=== PATIENT | female | born 1955 | race American Indian/Alaskan Native ===

== ENCOUNTER 2016-02-11 14:07 | Emergency (ER) | payer MEDICAID ==
[2016-02-11 14:18] VITALS: BP 155/94
[2016-02-11] MEDS ORDERED: NORCO 5/325 PO ONE (16:42)
[2016-02-11] MEDS ORDERED: MOTRIN PO ONE (16:42)
--- NOTE | 2016-02-11 16:44 | Emergency Department Report ---
ED Lower Extremity HPI - General Chief Complaint: Extremity Injury, Lower Stated Complaint: RIGHT KNEE INJURY Time Seen by Provider: 02/11/16 16:42 Source: patient Mode of arrival: Ambulatory Limitations: No Limitations - History of Present Illness Initial Comments: Patient reports right knee pain with swelling after she accidentally bumped her knee on the bedpost one week ago. Complaint: knee injury (right) Onset/Timin -: days(s) Injury: Knee: Right Type of Injury: unknown Place: home Severity: severe Severity scale (0 -10): 9 Improves With: immobilization Worsens With: weight bearing Context: direct blow Other Symptoms: other (none) Associated Symptoms: swelling, able to partially bear weight Treatments Prior to Arrival: other (none) - Related Data Home Medications Medication Instructions Recorded Confirmed Last Taken Carvedilol [Coreg] 12.5 mg PO BID 07/25/14 04/17/15 04/16/15 12.5 MG Lisinopril [Zestril TAB] 40 mg PO QDAY 07/25/14 04/17/15 04/16/15 40 MG Sertraline [Zoloft] 100 mg PO QDAY 07/25/14 04/17/15 04/16/15 100 MG amLODIPine [Norvasc] 10 mg PO DAILY 07/25/14 04/17/15 04/16/15 10 MG cloNIDine [Catapres] 0.2 mg PO QHS 07/25/14 04/17/15 04/16/15 0.2 MG hydrALAZINE [Apresoline TAB] 25 mg PO TID 07/25/14 04/17/15 04/16/15 25 MG Diclofenac Sodium 75 mg PO BID 04/17/15 04/17/15 04/16/15 75 MG Diltiazem HCl [Diltiazem 24Hr ER] 300 mg PO DAILY 04/17/15 04/17/15 04/16/15 300 MG Lisinopril [Zestril TAB] 40 mg PO QDAY 04/17/15 04/17/15 04/16/15 40 MG Nortriptyline HCl 25 mg PO BID 04/17/15 04/17/15 04/16/15 25 MG Previous Rx's Medication Instructions Recorded Last Taken Type ALBUTEROL Inhaler [ProAir HFA 2 puff IH QID PRN #1 inhalation 04/17/15 Unknown Rx Inhaler] Benzonatate [Tessalon Perles] 100 mg PO Q8HR #20 capsule 04/17/15 Unknown Rx predniSONE [Deltasone] 20 mg PO BID #10 tab 04/17/15 Unknown Rx traMADol [Ultram 50 MG tab] 50 mg PO Q6HR PRN #16 tablet 07/26/15 Unknown Rx Ibuprofen [Motrin 800 MG tab] 800 mg PO Q8HR PRN #30 tablet 02/11/16 Unknown Rx Allergies Allergy/AdvReac Type Severity Reaction Status Date / Time codeine Allergy Swelling Verified 07/26/15 14:45 Penicillins Allergy Swelling Verified 07/26/15 14:45 ED Review of Systems ROS: Stated complaint: RIGHT KNEE INJURY Other details as noted in HPI Constitutional: denies: chills, diaphoresis, fever, malaise Respiratory: denies: cough, orthopnea, shortness of breath, SOB with exertion, SOB at rest, stridor, wheezing Cardiovascular: denies: chest pain, palpitations, dyspnea on exertion, orthopnea , edema, syncope, paroxysmal nocturnal dyspnea Musculoskeletal: arthralgia (right knee). denies: back pain, joint swelling, myalgia Neurological: denies: headache, weakness, numbness, paresthesias, confusion, abnormal gait, vertigo Hematological/Lymphatic: denies: easy bleeding, easy bruising, swollen glands ED Past Medical Hx - Past Medical History Hx Hypertension: Yes Hx Arthritis: Yes Additional medical history: bronchitis - Surgical History Additional Surgical History: right total knee replacement, hernia repair, shoulder surgery - Social History Smoking Status: Current Some Day Smoker Substance Use Type: None - Medications Home Medications: Home Medications Medication Instructions Recorded Confirmed Last Taken Type Carvedilol [Coreg] 12.5 mg PO BID 07/25/14 04/17/15 04/16/15 History 12.5 MG Lisinopril [Zestril TAB] 40 mg PO QDAY 07/25/14 04/17/15 04/16/15 History 40 MG Sertraline [Zoloft] 100 mg PO QDAY 07/25/14 04/17/15 04/16/15 History 100 MG amLODIPine [Norvasc] 10 mg PO DAILY 07/25/14 04/17/15 04/16/15 History 10 MG cloNIDine [Catapres] 0.2 mg PO QHS 07/25/14 04/17/15 04/16/15 History 0.2 MG hydrALAZINE [Apresoline TAB] 25 mg PO TID 07/25/14 04/17/15 04/16/15 History 25 MG ALBUTEROL Inhaler [ProAir HFA 2 puff IH QID PRN #1 inhalation 04/17/15 Unknown Rx Inhaler] Benzonatate [Tessalon Perles] 100 mg PO Q8HR #20 capsule 04/17/15 Unknown Rx Diclofenac Sodium 75 mg PO BID 04/17/15 04/17/15 04/16/15 History 75 MG Diltiazem HCl [Diltiazem 24Hr ER] 300 mg PO DAILY 04/17/15 04/17/15 04/16/15 History 300 MG Lisinopril [Zestril TAB] 40 mg PO QDAY 04/17/15 04/17/15 04/16/15 History 40 MG Nortriptyline HCl 25 mg PO BID 04/17/15 04/17/15 04/16/15 History 25 MG predniSONE [Deltasone] 20 mg PO BID #10 tab 04/17/15 Unknown Rx traMADol [Ultram 50 MG tab] 50 mg PO Q6HR PRN #16 tablet 07/26/15 Unknown Rx Ibuprofen [Motrin 800 MG tab] 800 mg PO Q8HR PRN #30 tablet 02/11/16 Unknown Rx ED Physical Exam - General Limitations: No Limitations General appearance: alert, in no apparent distress - Head Head exam: Present: atraumatic - ENT ENT exam: Present: normal exam, mucous membranes moist. Absent: mucous membranes dry - Neck Neck exam: Present: normal inspection, full ROM. Absent: tenderness, meningismus, lymphadenopathy, thyromegaly - Respiratory Respiratory exam: Present: normal lung sounds bilaterally. Absent: respiratory distress, wheezes, rales, rhonchi, stridor, chest wall tenderness, accessory muscle use, decreased breath sounds, prolonged expiratory - Cardiovascular Cardiovascular Exam: Present: regular rate, normal rhythm, normal heart sounds. Absent: systolic murmur, diastolic murmur, rubs, gallop, clicks, JVD, S3, S4 - Expanded Lower Extremity Exam Right Hip exam: Present: pelvic stability Upper Leg exam: Present: normal inspection, full ROM. Absent: tenderness, swelling, abrasion, laceration, ecchymosis, deformity, crepidus, dislocation, erythema Knee exam: Present: full ROM, tenderness (with palpation to lateral and median) , swelling (minimal to lateral and median), full knee extension. Absent: abrasion, laceration, ecchymosis, deformity, crepidus, dislocation, erythema, effusion, pain w/ pronation/supination, posterior draw sign, pain/laxity with valgus, pain/laxity with varus Lower Leg exam: Present: normal inspection, full ROM. Absent: tenderness, swelling, abrasion, laceration, ecchymosis, deformity, crepidus, dislocation, erythema, palpable cord, Flynn's sign Neuro vascular tendon exam: Present: no vascular compromise. Absent: pulse deficit, abnormal cap refill, motor deficit, sensory deficit, tendon deficit, extremity cold to touch, pallor, abnormal 2-point discrimination, decreased fine /light touch, foot drop, peroneal nerve deficit, significant pain with passive ROM of distal joint Gait: Positive: not tested/not observed - Back Exam Back exam: Present: normal inspection, full ROM. Absent: tenderness - Neurological Exam Neurological exam: Present: alert, oriented X3, CN II-XII intact, normal gait, reflexes normal. Absent: motor sensory deficit - Skin Skin exam: Present: warm, dry, intact, normal color. Absent: rash ED Course Vital Signs 02/11/16 14:12 Temperature 98.9 F Pulse Rate 94 H Respiratory 16 Rate Blood Pressure 155/94 O2 Sat by Pulse 97 Oximetry - Reevaluation(s) Reevaluation #1: 02/11/16 16:43 pain medication, analgesic and radiology study ordered ED Lower Extremity MDM - Lab Data Vital Signs 02/11/16 14:12 Temperature 98.9 F Pulse Rate 94 H Respiratory 16 Rate Blood Pressure 155/94 O2 Sat by Pulse 97 Oximetry - Radiology Data Radiology results: image reviewed FINAL REPORT PROCEDURE: Right knee. TECHNIQUE: Three views. HISTORY: Right knee pain after injury. COMPARISON: No prior studies are available for comparison. FINDINGS: There is a total knee prosthesis in satisfactory position. The bones appear intact without fracture. The soft tissues are unremarkable. There is no evidence of a knee effusion. IMPRESSION: Total knee prosthesis. No evidence of fracture. - Medical Decision Making Auto course of ED, analgesics, pain medication and radiology studies were ordered. The imaging studies revealed total knee prosthesis. No evidence of fracture. Patient was sent home with a knee immobilizer, crutches and prescription for ibuprofen, instructed to follow with selector referrals given at discharge, she verbalize understanding - Differential Diagnosis Right knee pain, Right knee fracture Critical care attestation.: If time is entered above; I have spent that time in minutes in the direct care of this critically ill patient, excluding procedure time. ED Disposition Clinical Impression: Right knee pain Qualifiers: Chronicity: acute Qualified Code(s): M25.561 - Pain in right knee Disposition: DISCHARGED TO HOME OR SELFCARE Is pt being admited?: No Does the pt Need Aspirin: No Condition: Stable Instructions: Arthralgia (ED) Additional Instructions: Take medication as directed. Wear knee immobilizer for comfort. Follow up with the selective referrals given at discharge Prescriptions: Ibuprofen [Motrin 800 MG tab] 800 mg PO Q8HR PRN #30 tablet PRN Reason: Pain Referrals: CHAPARRO AGARWAL MD [Primary Care Provider] - 3-5 Days ALYSHA MARTINEZ MD [Staff Physician] - 3-5 Days Forms: Work/School Release Form(ED) Time of Disposition: 17:37
--- NOTE | 2016-02-11 18:32 | XRay Report ---
FINAL REPORT PROCEDURE: Right knee. TECHNIQUE: Three views. HISTORY: Right knee pain after injury. COMPARISON: No prior studies are available for comparison. FINDINGS: There is a total knee prosthesis in satisfactory position. The bones appear intact without fracture. The soft tissues are unremarkable. There is no evidence of a knee effusion. IMPRESSION: Total knee prosthesis. No evidence of fracture.
== END 2016-02-11 17:53 | disposition home or self-care (01) ==
LOC: ED 14:07
DX: M25.561 Pain in right knee (principal); I10 Essential (primary) hypertension; F17.200 Nicotine dependence, unspecified, uncomplicated; Z87.39 Personal history of other diseases of the musculoskeletal system and connective tissue; X58.XXXA Exposure to other specified factors, initial encounter; Y93.9 Activity, unspecified; Y92.9 Unspecified place or not applicable; Y99.9 Unspecified external cause status

== ENCOUNTER 2016-12-31 09:35 | Outpatient (CLI) | payer MEDICAID ==
--- NOTE | 2016-12-31 10:37 | XRay Report ---
LUMBOSACRAL SPINE, FIVE VIEWS: HISTORY: Lumbar ago with sciatica. There is 1.2 cm anterolisthesis of L4 with respect to L5 on the lateral image. This appears to be secondary to degenerative facet arthropathy. The remaining lumbar vertebra are normal in alignment. No evidence for compression deformity or bone lesion. Moderate to severe multilevel disc space narrowing, spurring and facet hypertrophy are identified. The lowest 3 levels are most affected. Severe bilateral neural foraminal stenosis is suspected at L4-5 on the oblique images. The remaining bony neural foramen appear within normal limits. The visualized sacrum and SI joints are unremarkable. IMPRESSION: Grade 2 anterolisthesis of L4 with respect to L5. High-grade bilateral neural foraminal narrowing at L4-5 is suspected. This could be further evaluated with MRI lumbar spine without contrast if needed. Multilevel lumbar spondylosis. No acute process is appreciated.
--- NOTE | 2016-12-31 10:39 | XRay Report ---
BILATERAL KNEES, 3 VIEWS History: Pain. Findings: Right knee arthroplasty changes are stable since 02/11/16. No evidence for fracture or joint effusion. Moderate osteoarthritic changes are identified in the left knee. The medial compartment is most affected. No fracture or osteochondral defect is identified. Moderate left knee effusion is noted. Impression: Unremarkable appearance of the right knee arthroplasty. Moderate osteoarthritic changes in the left knee. Left knee effusion. No acute process is noted.
== END 2016-12-31 09:36 | disposition home or self-care (01) ==
LOC: XRAY 09:35
PROVIDERS: ATTEND Urology
DX: M17.12 Unilateral primary osteoarthritis, left knee (principal); M47.896 Other spondylosis, lumbar region; M25.561 Pain in right knee; Z96.651 Presence of right artificial knee joint
CPT/HCPCS: 72110

== ENCOUNTER 2019-01-23 21:37 | Observation (INO) | payer MEDICAID ==
[2019-01-24] MEDS ORDERED: ASPIRIN 325 MG TAB PO ONE (00:43)
[2019-01-24] MEDS ORDERED: MORPHINE 4 MG/1 ML INJ IV ONE (01:02)
[2019-01-24] MEDS ORDERED: ONDANSETRON 4 MG/2 ML INJ IV ONE (01:02)
--- NOTE | 2019-01-24 01:06 | Emergency Department Report ---
ED Chest Pain HPI - General Chief Complaint: Chest Pain Stated Complaint: CHEST PAIN Time Seen by Provider: 01/24/19 00:59 Source: patient Mode of arrival: Ambulatory Limitations: No Limitations - History of Present Illness Initial Comments: Patient is 63 years old female with history of hypertension. Patient presented to the ER complaining of left sided chest pain, pressure and heaviness with no radiation. Patient stated that pain started last night after she smoked crack cocaine. Patient stated that she relapsed after 7 years of being clean. P sangita stated that her grandson got killed few Days ago. Patient denied any shortness of breath, cough, fever or chills. MD Complaint: chest pain -: Last night Onset: during rest Pain Location: left chest Quality: tightness, heaviness Consistency: constant Worsens With: nothing - Related Data Home Medications Medication Instructions Recorded Confirmed Last Taken amLODIPine 10 mg PO DAILY 07/25/14 12/18/17 04/16/15 10 MG ALPRAZolam [Xanax TAB] 2 mg PO TID PRN 12/18/17 12/18/17 Unknown Losartan/Hydrochlorothiazide 1 each PO DAILY 12/18/17 12/18/17 Unknown [Hyzaar 100-25 TAB] Oxycodone HCl/Acetaminophen 1 each PO Q12H PRN 12/18/17 12/18/17 Unknown [Percocet 10/325 mg] predniSONE [Deltasone] 10 mg PO DAILY 12/18/17 12/18/17 Unknown Previous Rx's Medication Instructions Recorded Last Taken Type ALBUTEROL Inhaler (OR & NICU) 2 puff IH Q4HR PRN #1 inhalation 12/18/17 Unknown Rx [ProAir HFA Inhaler] Azithromycin [Zithromax Z-ANA LILIA] 250 mg PO DAILY #6 tablet 12/18/17 Unknown Rx Benzonatate [Tessalon Perles] 100 mg PO Q8HR #20 capsule 12/18/17 Unknown Rx predniSONE [Deltasone] 20 mg PO QDAY #15 tab 12/18/17 Unknown Rx Allergies Allergy/AdvReac Type Severity Reaction Status Date / Time codeine Allergy Swelling Verified 07/26/15 14:45 Penicillins Allergy Swelling Verified 07/26/15 14:45 Heart Score - HEART Score History: Moderately suspicious EKG: Non-specific Age: 45-65 Risk factors: 1-2 risk factors Troponin: < normal limit HEART Score: 4 - Critical Actions Critical Actions: 4-6 pts:12-16.6% risk of adverse cardiac event. Should be admitted ED Review of Systems ROS: Stated complaint: CHEST PAIN Other details as noted in HPI Comment: All other systems reviewed and negative Constitutional: denies: chills, fever Respiratory: denies: cough, shortness of breath, SOB with exertion Cardiovascular: denies: chest pain Gastrointestinal: denies: abdominal pain, nausea, vomiting Musculoskeletal: denies: back pain Neurological: denies: headache, weakness, numbness, paresthesias, confusion ED Past Medical Hx - Past Medical History Previous Medical History?: Yes Hx Hypertension: Yes Hx Arthritis: Yes Additional medical history: bronchitis, Substance abuser - Surgical History Past Surgical History?: Yes Additional Surgical History: right total knee replacement, hernia repair, shoulder surgery - Social History Smoking Status: Never Smoker Substance Use Type: Cocaine - Medications Home Medications: Home Medications Medication Instructions Recorded Confirmed Last Taken Type amLODIPine 10 mg PO DAILY 07/25/14 12/18/17 04/16/15 History 10 MG ALBUTEROL Inhaler (OR & NICU) 2 puff IH Q4HR PRN #1 inhalation 12/18/17 Unknown Rx [ProAir HFA Inhaler] ALPRAZolam [Xanax TAB] 2 mg PO TID PRN 12/18/17 12/18/17 Unknown History Azithromycin [Zithromax Z-ANA LILIA] 250 mg PO DAILY #6 tablet 12/18/17 Unknown Rx Benzonatate [Tessalon Perles] 100 mg PO Q8HR #20 capsule 12/18/17 Unknown Rx Losartan/Hydrochlorothiazide 1 each PO DAILY 12/18/17 12/18/17 Unknown History [Hyzaar 100-25 TAB] Oxycodone HCl/Acetaminophen 1 each PO Q12H PRN 12/18/17 12/18/17 Unknown History [Percocet 10/325 mg] predniSONE [Deltasone] 10 mg PO DAILY 12/18/17 12/18/17 Unknown History predniSONE [Deltasone] 20 mg PO QDAY #15 tab 12/18/17 Unknown Rx ED Physical Exam - General Limitations: No Limitations General appearance: alert, in no apparent distress - Head Head exam: Present: atraumatic, normocephalic, normal inspection - Eye Eye exam: Present: normal appearance - ENT ENT exam: Present: normal exam, normal orophraynx, mucous membranes moist - Neck Neck exam: Present: normal inspection, full ROM. Absent: tenderness, meningismus, lymphadenopathy, thyromegaly - Respiratory Respiratory exam: Present: normal lung sounds bilaterally - Cardiovascular Cardiovascular Exam: Present: regular rate, normal rhythm, normal heart sounds - GI/Abdominal GI/Abdominal exam: Present: soft, normal bowel sounds. Absent: distended, tenderness, guarding, rebound, rigid, organomegaly, mass, bruit, pulsatile mass, hernia - Extremities Exam Extremities exam: Present: normal inspection, full ROM, normal capillary refill. Absent: tenderness, pedal edema, calf tenderness - Back Exam Back exam: Present: normal inspection, full ROM. Absent: CVA tenderness (R), CVA tenderness (L), muscle spasm, paraspinal tenderness, vertebral tenderness - Neurological Exam Neurological exam: Present: alert, oriented X3, CN II-XII intact, normal gait, reflexes normal - Psychiatric Psychiatric exam: Present: normal mood, anxious. Absent: depressed, agitated, homicidal ideation, suicidal ideation - Skin Skin exam: Present: warm, intact, normal color ED Course Vital Signs 01/23/19 01/23/19 01/24/19 21:42 23:52 01:00 Temperature 98.2 F Pulse Rate 106 H 91 H Respiratory 18 10 L 18 Rate Blood Pressure 152/100 O2 Sat by Pulse 96 98 Oximetry 01/24/19 01/24/19 01:34 01:46 Temperature Pulse Rate 90 91 H Respiratory 12 16 Rate Blood Pressure O2 Sat by Pulse Oximetry ED Medical Decision Making - Lab Data Result diagrams: 01/24/19 00:56 01/24/19 00:56 - EKG Data -: EKG Interpreted by [facility] EKG shows normal: sinus rhythm Rate: normal - EKG Data Interpretation: no acute changes - Radiology Data Radiology results: report reviewed - Medical Decision Making Patient is 63 years old female with history of hypertension. Patient presented to the ER complaining of left sided chest pain, pressure and heaviness with no radiation. Patient stated that pain started last night after she smoked crack cocaine. Patient stated that she relapsed after 7 years of being clean. Patient stated that her grandson got killed few Days ago. Patient denied any shortness of breath, cough, fever or chills. Patient EKG is unremarkable. Chest x-ray is negative. Labs reviewed and is unremarkable including a first set of troponin. Patient received morphine for pain. Patient stated that she is feeling better. I discussed the patient with Dr. Gross, he agreed to admit the patient to medical service for further management. Critical Care Time: Yes Critical care attestation.: If time is entered above; I have spent that time in minutes in the direct care of this critically ill patient, excluding procedure time. ED Disposition Clinical Impression: Chest pain, Cocaine abuse Disposition: OP ADMIT IP TO THIS HOSP Is pt being admited?: Yes Condition: Stable Instructions: Chest Pain (ED) Referrals: PRIMARY CARE, [Primary Care Provider] - 3-5 Days
[2019-01-24 01:18] LABS: Basophils # (Auto) 0.1 K/mm3 (0.0-0.1); Basophils % (Auto) 1.3 % (0.0-1.8); Eosinophils % (Auto) 0.2 % (0.0-4.3); Hematocrit 40.6 % (30.3-42.9); Hemoglobin 13.6 gm/dl (10.1-14.3); Lymphocytes # (Auto) 2.8 K/mm3 (1.2-5.4); Lymphocytes % (Auto) 28.9 % (13.4-35.0); Mean Corpuscular HGB Conc 34 % (30-34); Mean Corpuscular Volume 88 fl (79-97); Monocytes # (Auto) 0.9 K/mm3 (0.0-0.8); Monocytes % (Auto) 8.7 % (0.0-7.3); Platelet Count 301 K/mm3 (140-440); Red Blood Count 4.61 M/mm3 (3.65-5.03); Red Cell Distribution Width 15.2 % (13.2-15.2)
[2019-01-24 01:40] LABS: BUN/Creatinine Ratio 22; Blood Urea Nitrogen 13 mg/dL (7-17); Calcium 9.6 mg/dL (8.4-10.2); Hemolysis Index 8
--- NOTE | 2019-01-24 01:48 | XRay Report ---
CHEST 1 VIEW INDICATION / CLINICAL INFORMATION: Chest Pain. COMPARISON: 12/18/2017 FINDINGS: SUPPORT DEVICES: None. HEART / MEDIASTINUM: No significant abnormality. LUNGS / PLEURA: No significant pulmonary or pleural abnormality. No pneumothorax. ADDITIONAL FINDINGS: No significant additional findings. IMPRESSION: 1. No significant change Signer Name: Mahin Celeste MD Signed: 01/24/2019 1:43 AM Workstation Name: [id number]
[2019-01-24] MEDS ORDERED: NITROGLYCERIN 0.4 MG TAB SUBL SL PRN (02:46)
[2019-01-24] MEDS ORDERED: ONDANSETRON 4 MG/2 ML INJ IV PRN (02:46)
[2019-01-24] MEDS ORDERED: hydrALAZINE 20 MG/1 ML INJ IV PRN (02:46)
--- NOTE | 2019-01-24 02:59 | History and Physical Report ---
History of Present Illness Date of examination: 01/24/19 Date of admission: 01/24/19 Chief complaint: Chest pain History of present illness: 63 year old -[place] female with known history of hypertension, bipolar disorder and schizophrenia presented to the emergency room today complaining of left-sided chest pain. Chest pain is said to be radiating to the left upper extremity. She has had some associated nausea and vomiting, shortness of breath, denies any abdominal pain and no diarrhea. She denies any fever or chills. There is no known relieving or exacerbating factor for chest pain. Chest pain felt like heaviness and has been ongoing since last night. Chest pain has been constant over the past few hours. Patient admits that she has been abusing cocaine lately because she recently lost her grandson. Past History Past Medical History: hypertension, other (bipolar disorder, schizophrenia) Past Surgical History: total knee replacement, Other (right shoulder surgery) Social history: other (uses cocaine) Family history: hypertension, other (bipolar disorder) Medications and Allergies Allergies Allergy/AdvReac Type Severity Reaction Status Date / Time codeine Allergy Swelling Verified 07/26/15 14:45 Penicillins Allergy Swelling Verified 07/26/15 14:45 Home Medications Medication Instructions Recorded Confirmed Last Taken Type amLODIPine 10 mg PO DAILY 07/25/14 12/18/17 04/16/15 History 10 MG ALBUTEROL Inhaler (OR & NICU) 2 puff IH Q4HR PRN #1 inhalation 12/18/17 Unknown Rx [ProAir HFA Inhaler] ALPRAZolam [Xanax TAB] 2 mg PO TID PRN 12/18/17 12/18/17 Unknown History Azithromycin [Zithromax Z-ANA LILIA] 250 mg PO DAILY #6 tablet 12/18/17 Unknown Rx Benzonatate [Tessalon Perles] 100 mg PO Q8HR #20 capsule 12/18/17 Unknown Rx Losartan/Hydrochlorothiazide 1 each PO DAILY 12/18/17 12/18/17 Unknown History [Hyzaar 100-25 TAB] Oxycodone HCl/Acetaminophen 1 each PO Q12H PRN 12/18/17 12/18/17 Unknown History [Percocet 10/325 mg] predniSONE [Deltasone] 10 mg PO DAILY 12/18/17 12/18/17 Unknown History predniSONE [Deltasone] 20 mg PO QDAY #15 tab 12/18/17 Unknown Rx Review of Systems Cardiovascular: chest pain Gastrointestinal: nausea, vomiting Exam - Constitutional Vitals: Temp Pulse Resp BP Pulse Ox 98.2 F 91 H 16 152/100 98 01/23/19 21:42 01/24/19 01:46 01/24/19 01:46 01/23/19 21:42 01/23/19 23:52 General appearance: Present: no acute distress, well-nourished - EENT Eyes: Present: PERRL, EOM intact ENT: hearing intact, clear oral mucosa, dentition normal - Neck Neck: Present: supple, normal ROM - Respiratory Respiratory effort: normal Respiratory: bilateral: CTA - Cardiovascular Rhythm: regular Heart Sounds: Present: S1 & S2 - Extremities Extremities: no ischemia, pulses intact, No edema - Abdominal General gastrointestinal: Present: soft, non-tender, non-distended, normal bowel sounds - Integumentary Integumentary: Present: clear, warm - Musculoskeletal Musculoskeletal: strength equal bilaterally - Psychiatric Psychiatric: appropriate mood/affect, intact judgment & insight, cooperative - Neurologic Neurologic: CNII-XII intact, moves all extremities Results - Labs CBC & Chem 7: 01/24/19 03:21 01/24/19 03:21 Labs: Abnormal lab results 01/24/19 01/24/19 Range/Units 00:56 00:56 [place] % (Auto) 8.7 H (0.0-7.3) % [place] # 0.9 H (0.0-0.8) K/mm3 Potassium 3.3 L (3.6-5.0) mmol/L Creatinine 0.6 L (0.7-1.2) mg/dL Glucose 128 H (65-100) mg/dL Assessment and Plan - Patient Problems (1) Chest pain Current Visit: Yes Status: Acute Plan to address problem: Patient admitted to telemetry. Workup so far has been negative. We'll monitor EKG and also monitor cardiac enzymes. Chest pain probably secondary to cocaine abuse. We will request cardiology evaluation and recommendation (2) Cocaine abuse Current Visit: Yes Status: Acute Plan to address problem: Counseled on quitting cocaine abuse. (3) History of bipolar disorder Current Visit: Yes Status: Acute Plan to address problem: We will resume routine home medications once reconciled. (4) DVT prophylaxis Current Visit: Yes Status: Acute Plan to address problem: Patient placed on subcutaneous heparin. (5) Full code status Current Visit: Yes Status: Acute
[2019-01-24 03:40] LABS: Basophils # (Auto) 0.1 K/mm3 (0.0-0.1); Basophils % (Auto) 1.1 % (0.0-1.8); Eosinophils % (Auto) 0.4 % (0.0-4.3); Hematocrit 37.7 % (30.3-42.9); Lymphocytes # (Auto) 2.5 K/mm3 (1.2-5.4); Lymphocytes % (Auto) 32.1 % (13.4-35.0); Mean Corpuscular HGB Conc 35 % (30-34); Mean Corpuscular Volume 87 fl (79-97); Monocytes # (Auto) 0.6 K/mm3 (0.0-0.8); Platelet Count 282 K/mm3 (140-440); Red Blood Count 4.31 M/mm3 (3.65-5.03); Red Cell Distribution Width 14.9 % (13.2-15.2)
[2019-01-24 04:03] LABS: BUN/Creatinine Ratio 23; Blood Urea Nitrogen 14 mg/dL (7-17); Calcium 9.3 mg/dL (8.4-10.2); Hemolysis Index 4
[2019-01-24] MEDS: HEPARIN 5,000 UNIT/1 ML VIAL SUB-Q SCH ×3 (08:09→22:42)
--- NOTE | 2019-01-24 11:11 | Consultation ---
History of Present Illness Consult date: 01/24/19 Consult reason: chest pain History of present illness: 63 year old old piece -Burkinan female with a history of hypertension, claims to have used crack cocaine yesterday and this was followed by left precordial chest pain and tightness and came to the emergency room. Currently patient is chest pain-free. Past History Past Medical History: hypertension, other (bipolar disorder, schizophrenia) Past Surgical History: total knee replacement, Other (right shoulder surgery) Social history: other (uses cocaine) Family history: hypertension, other (bipolar disorder) Medications and Allergies Allergies Allergy/AdvReac Type Severity Reaction Status Date / Time codeine Allergy Swelling Verified 07/26/15 14:45 Penicillins Allergy Swelling Verified 07/26/15 14:45 Home Medications Medication Instructions Recorded Confirmed Last Taken Type amLODIPine 10 mg PO DAILY 07/25/14 12/18/17 04/16/15 History 10 MG ALBUTEROL Inhaler (OR & NICU) 2 puff IH Q4HR PRN #1 inhalation 12/18/17 Unknown Rx [ProAir HFA Inhaler] ALPRAZolam [Xanax TAB] 2 mg PO TID PRN 12/18/17 12/18/17 Unknown History Azithromycin [Zithromax Z-ANA LILIA] 250 mg PO DAILY #6 tablet 12/18/17 Unknown Rx Benzonatate [Tessalon Perles] 100 mg PO Q8HR #20 capsule 12/18/17 Unknown Rx Losartan/Hydrochlorothiazide 1 each PO DAILY 12/18/17 12/18/17 Unknown History [Hyzaar 100-25 TAB] Oxycodone HCl/Acetaminophen 1 each PO Q12H PRN 12/18/17 12/18/17 Unknown History [Percocet 10/325 mg] predniSONE [Deltasone] 10 mg PO DAILY 12/18/17 12/18/17 Unknown History predniSONE [Deltasone] 20 mg PO QDAY #15 tab 12/18/17 Unknown Rx Active Meds: Active Medications Acetaminophen (Tylenol) 650 mg PO Q4H PRN PRN Reason: Pain MILD(1-3)/Fever >100.5/SOTO Aspirin (Ecotrin) 325 mg PO QDAY CHRISTOPHER Heparin Sodium (Porcine) (Heparin) 5,000 unit SUB-Q Q8HR [facility] Last Admin: 01/24/19 08:09 Dose: 5,000 unit Documented by: Hydralazine HCl (Apresoline) 10 mg IV Q6H PRN PRN Reason: FOR SBP > target Nitroglycerin (Nitrostat) 0.4 mg SL Q5M PRN PRN Reason: Chest Pain Ondansetron HCl (Zofran) 4 mg IV Q8H PRN PRN Reason: Nausea And Vomiting Sodium Chloride (Sodium Chloride Flush Syringe 10 Ml) 10 ml IV BID CHRISTOPHER Sodium Chloride (Sodium Chloride Flush Syringe 10 Ml) 10 ml IV PRN PRN PRN Reason: LINE FLUSH Review of Systems All systems: negative Cardiovascular: chest pain Physical Examination Vital Signs Temp Pulse Resp BP Pulse Ox 98.2 F 106 H 18 152/100 96 01/23/19 21:42 01/23/19 21:42 01/23/19 21:42 01/23/19 21:42 01/23/19 21:42 General appearance: no acute distress, obese HEENT: Positive: PERRL, Mucus Membranes Moist Neck: Positive: neck supple, trachea midline Cardiac: Positive: Reg Rate and Rhythm, S1/S2. Negative: Audible Murmur Lungs: Positive: clear to auscultation, Normal Breath Sounds Neuro: Positive: Grossly Intact Abdomen: Positive: Soft, Active Bowel Sounds. Negative: Tender, Distended Female genitourinary: deferred Skin: Positive: Clear Incision: Cardiac Cath Site Musculoskeletal: No Pain, Normal Range of Motion Extremities: Present: normal. Absent: edema Results 01/24/19 03:21 01/24/19 03:21 CBC 01/24/19 01/24/19 Range/Units 00:56 03:21 WBC 9.8 7.8 (4.5-11.0) K/mm3 RBC 4.61 4.31 (3.65-5.03) M/mm3 Hgb 13.6 13.0 (10.1-14.3) gm/dl Hct 40.6 37.7 (30.3-42.9) % Plt Count 301 282 (140-440) K/mm3 Lymph # 2.8 2.5 (1.2-5.4) K/mm3 Bibb # 0.9 H 0.6 (0.0-0.8) K/mm3 Eos # 0.0 0.0 (0.0-0.4) K/mm3 Baso # 0.1 0.1 (0.0-0.1) K/mm3 Comprehensive Metabolic Panel 01/24/19 01/24/19 Range/Units 00:56 03:21 Sodium 138 140 (137-145) mmol/L Potassium 3.3 L 3.1 L (3.6-5.0) mmol/L Chloride 99.8 101.6 (98-107) mmol/L Carbon Dioxide 23 25 (22-30) mmol/L BUN 13 14 (7-17) mg/dL Creatinine 0.6 L 0.6 L (0.7-1.2) mg/dL Glucose 128 H 132 H (65-100) mg/dL Calcium 9.6 9.3 (8.4-10.2) mg/dL - EKG Interpretation EKG: sinus rhythm EKG interpretations - Telemetry EKG Rhythm: Sinus Rhythm Assessment and Plan 1. Atypical chest pain 2. Essential hypertension 3. Obesity 4. Schizoaffective disorder 5. Cocaine abuse Plan Cardiac-kulkarni stable chest pain resolved. Schedule Lexiscan MPI to assess for ischemic coronary artery disease.
--- NOTE | 2019-01-24 18:55 | Event Note ---
Date: 01/24/19 Patient was admitted early this morning with chest pain Evaluated by cardiology scheduled for stress test tomorrow Patient feels slightly better, medical records reviewed Agree with treatment plan, history of cocaine abuse, advised to quit recreational drug use Ongoing tobacco abuse, advised smoking cessation and nicotine patch as needed Follow clinically, follow stress test if negative and if patient is stable May be discharged home tomorrow
[2019-01-24] MEDS: ACETAMINOPHEN 325 MG TAB PO PRN ×2 (19:33→23:51)
[2019-01-24 20:45] LABS: Amphetamine Screen,Urine PRESUMPTIVE NEGATIVE; Benzodiazepines Screen,Urine PRESUMPTIVE NEGATIVE; Cannabinoid Screen,Urine PRESUMPTIVE NEGATIVE; Methadone Screen,Urine PRESUMPTIVE NEGATIVE; Opiate Screen,Urine PRESUMPTIVE NEGATIVE
[2019-01-24 20:59] LABS: Cocaine Screen,Urine PRESUMPTIVE POSITIVE
[2019-01-25] MEDS: HEPARIN 5,000 UNIT/1 ML VIAL SUB-Q SCH ×2 (05:21→14:14)
[2019-01-25] MEDS ORDERED: REGADENOSON 0.4 MG/5 ML INJ IV ONE (06:53)
[2019-01-25 08:21] LABS: Hematocrit 36.5 % (30.3-42.9); Hemoglobin 12.2 gm/dl (10.1-14.3); Mean Corpuscular HGB Conc 33 % (30-34); Mean Corpuscular Volume 89 fl (79-97); Platelet Count 257 K/mm3 (140-440); Red Blood Count 4.09 M/mm3 (3.65-5.03); Red Cell Distribution Width 14.9 % (13.2-15.2)
[2019-01-25 08:28] LABS: INR 0.97 (0.87-1.13); Partial Thromboplastin Time 37.9 Sec. (24.2-36.6)
[2019-01-25 08:40] LABS: BUN/Creatinine Ratio 23; Blood Urea Nitrogen 14 mg/dL (7-17); Calcium 8.9 mg/dL (8.4-10.2); Hemolysis Index 0
[2019-01-25 09:51] LABS: Basophils % (Manual) 0 % (0.0-1.8); Total Cells Counted 100
[2019-01-25 09:52] LABS: Anisocytosis Few; Platelet Estimate Consistent w Auto; Poikilocytosis Few
[2019-01-25] MEDS ORDERED: ASPIRIN EC 325 MG TAB PO SCH (10:00)
[2019-01-25] MEDS ORDERED: ONDANSETRON 4 MG/2 ML INJ ONE (10:06)
[2019-01-25] MEDS ORDERED: PNEUMOCOCCAL 23 Valent 0.5 ML VIAL IM ONE (12:00)
[2019-01-25 12:29] VITALS: BP 135/84
--- NOTE | 2019-01-25 14:27 | Progress Note ---
Assessment and Plan - Patient Problems (1) Chest pain Current Visit: Yes Status: Acute Plan to address problem: Chest pain is atypical, thallium stress test is negative, patient is stable for cardiac discharge. (2) Nonischemic cardiomyopathy Current Visit: Yes Status: Acute Plan to address problem: History of nonischemic cardiomyopathy with ejection fraction of 20% in 2014, ech ocardiogram and this presentation shows a nearly completely resolved cardiomyopathy with current left ventricle ejection fraction 50-55%. Continue conservative medical therapy. Subjective Date of service: 01/25/19 Interval history: 63-year-old woman who presented with atypical chest pain. She has had an extensive prior cardiac ischemic evaluation including a cardiac catheterization 4 years ago. There was no significant coronary artery disease but there was a nonischemic cardiomyopathy with severe left ventricle systolic dysfunction, ejection fraction 20%. She was placed on guideline directed medical therapy, but has failed to maintain cardiac outpatient visits. On this presentation, echocardiogram today shows left ventricular ejection fraction 50-55%, evidence of a resolving nonischemic cardiomyopathy. A thallium perfusion scan was normal. Objective Vital Signs Temp Pulse Resp BP Pulse Ox 01/25/19 13:59 97 01/25/19 12:08 98.0 F 84 18 135/84 98 01/25/19 12:00 80 01/25/19 09:58 144/78 01/25/19 09:56 140/78 01/25/19 09:55 136/85 01/25/19 09:54 126/71 01/25/19 09:53 150/66 01/25/19 08:56 134/84 01/25/19 05:19 98.0 F 01/25/19 05:18 69 20 106/46 97 01/25/19 00:15 98.8 F 01/25/19 00:14 79 20 116/56 98 01/24/19 22:57 80 01/24/19 22:00 98 01/24/19 20:40 98.4 F 01/24/19 20:13 86 18 126/72 100 01/24/19 19:36 89 01/24/19 17:32 98.2 F 77 18 103/53 96 01/24/19 14:54 100 - Physical Examination General: No Apparent Distress HEENT: Positive: PERRL, Mucus Membranes Moist Neck: Positive: neck supple, trachea midline Cardiac: Positive: Reg Rate and Rhythm Lungs: Positive: Decreased Breath Sounds Neuro: Positive: Grossly Intact Abdomen: Positive: Soft, Active Bowel Sounds. Negative: Tender, Distended Skin: Positive: Clear Incision: Cardiac Cath Site Musculoskeletal: No Pain, Normal Range of Motion Extremities: Absent: edema - Labs and Meds Coagulation 01/25/19 Range/Units 07:29 PT 13.0 (12.2-14.9) Sec. INR 0.97 (0.87-1.13) APTT 37.9 H (24.2-36.6) Sec. CBC 01/25/19 Range/Units 07:29 WBC 4.3 L (4.5-11.0) K/mm3 RBC 4.09 (3.65-5.03) M/mm3 Hgb 12.2 (10.1-14.3) gm/dl Hct 36.5 (30.3-42.9) % Plt Count 257 (140-440) K/mm3 Comprehensive Metabolic Panel 01/25/19 Range/Units 07:29 Sodium 144 (137-145) mmol/L Potassium 3.6 (3.6-5.0) mmol/L Chloride 105.6 (98-107) mmol/L Carbon Dioxide 24 (22-30) mmol/L BUN 14 (7-17) mg/dL Creatinine 0.6 L (0.7-1.2) mg/dL Glucose 110 H (65-100) mg/dL Calcium 8.9 (8.4-10.2) mg/dL
[2019-01-25] MEDS: ACETAMINOPHEN 325 MG TAB PO PRN (15:48)
--- NOTE | 2019-01-25 16:11 | Discharge Summary ---
Providers - Providers Date of Admission: 01/24/19 02:05 Date of discharge: 01/25/19 Attending physician: SUZETTE MILLS 01/24/19 Consult to Cardiac Rehabilitation [CONS] Routine Reason For Exam: Phase I 01/24/19 02:46 Consult to Cardiology [CONS] Routine Consulting Provider: ANETA CONTE Reason For Exam: chest pain Primary care physician: ZIGZAG STITCHER Hospitalization Reason for admission: Chest pain Condition: Stable Pertinent studies: CXR Procedures: Echo; 50-55% Stress test; no ischemia Hospital course: 63 year old -Macedonian female with known history of hypertension, bipolar disorder and schizophrenia presented to the emergency room today complaining of left-sided chest pain. Admittedsymptomatically managed,evaluated by cardiology Had ECHO and stress test which was negative for ischemia. Patient's chest pain is non specific,probably sec to GERD. Today patient feels better,no new complaints,vital signs stable. Stable at discharge Discharge Diagnosis; -- Atypical chest pain --Essential hypertension --Obesity --Schizoaffective disorder --Cocaine abuse Stable at discharge Disposition: DC-01 TO HOME OR SELFCARE Time spent for discharge: 32 min Core Measure Documentation - Palliative Care Palliative Care/ Comfort Measures: Not Applicable - Core Measures Any of the following diagnoses?: none Exam - Constitutional Vitals: Temp Pulse Resp BP Pulse Ox 98.0 F 84 18 135/84 97 01/25/19 12:08 01/25/19 12:08 01/25/19 12:08 01/25/19 12:08 01/25/19 13:59 General appearance: Present: no acute distress, well-nourished, obese - EENT Eyes: Present: PERRL, EOM intact - Neck Neck: Present: supple, normal ROM - Respiratory Respiratory effort: normal Respiratory: bilateral: diminished, negative: rales, rhonchi, wheezing - Cardiovascular Rhythm: regular Heart Sounds: Present: S1 & S2 - Extremities Extremities: no ischemia, No edema - Abdominal General gastrointestinal: Present: soft, non-tender, non-distended, normal bowel sounds - Integumentary Integumentary: Present: clear, warm - Musculoskeletal Musculoskeletal: strength equal bilaterally - Psychiatric Psychiatric: appropriate mood/affect, cooperative - Neurologic Neurologic: moves all extremities Plan Activity: no restrictions Diet: other (cardiac diet) Additional Instructions: If you have Chest pain or shortness of breath contact [facility] or go to emergency room. Advised to quit recreational drug use. Advised smoking cessation, nicotine patch as needed Follow up with: PRIMARY CARE, [Primary Care Provider] - 3-5 Days NIESHA MILLER MD [Staff Physician] - 7 Days Prescriptions: Famotidine [Pepcid] 20 mg PO BID #30 tablet
--- NOTE | 2019-01-26 00:13 | Treadmill Report ---
STUDY: Thallium stress test. LEFT VENTRICLE: Left ventricular chamber size is within normal spread. Perfusion study demonstrates fairly homogeneous uptake of the tracer in all segments, no significant defects identified. Gated analysis demonstrates normal left ventricular systolic function, ejection fraction 57%. CONCLUSION: Normal myocardial perfusion study. JOB# [id number] CA/NTS
== END 2019-01-25 17:15 | disposition home or self-care (01) ==
LOC: ED 21:37 → 4A 01-24 02:05
PROVIDERS: ADMIT Internal Medicine Geriatric Medicine; ATTEND Internal Medicine
DX: R07.89 Other chest pain (principal); F14.10 Cocaine abuse, uncomplicated; F31.9 Bipolar disorder, unspecified; R11.2 Nausea with vomiting, unspecified; I10 Essential (primary) hypertension; F20.9 Schizophrenia, unspecified; M19.90 Unspecified osteoarthritis, unspecified site; I42.8 Other cardiomyopathies; Z23 Encounter for immunization; Z96.651 Presence of right artificial knee joint; Z98.890 Other specified postprocedural states
CPT/HCPCS: 36415; 71045; 78452; 80048; 80307; 84484; 85007; 85025; 85610; 85730; 90471; 90732; 93005; 93010; 93017; 93306; 94760; 96372; 96374; 96375; 96376; 99285; 99406; A9502; G0378; J1644; J2270; J2405; J2785

== ENCOUNTER 2020-05-21 13:33 | Inpatient (IN) | payer MEDICAID ==
--- NOTE | 2020-05-21 13:44 | Event Note ---
ED Screening Note Date of service: 05/21/20 Time: 13:44 ED Screening Note: There is a very pleasant 64-year-old female who presents the emergency department chief complaint shortness of breath. Patient has a history of COPD per chart. She states she feels that if her bronchitis is flaring back up. She denies any smoking. She had no acute short of breathing, lung sounds are clear and oxygen saturation 100% on room air with normal vitals otherwise. This initial assessment/diagnostic orders/clinical plan/treatment(s) is/are subject to change based on patients health status, clinical progression and re- assessment by fellow clinical providers in the ED. Further treatment and workup at subsequent clinical providers discretion. Patient/guardian urged not to elope from the ED as their condition may be serious if not clinically assessed and managed. Initial orders include: CBC, CMP, chest x-ray
[2020-05-21 14:22] LABS: Basophils % (Auto) 0.8 % (0.0-1.8); Eosinophils # (Auto) 0.1 K/mm3 (0.0-0.4); Eosinophils % (Auto) 1.4 % (0.0-4.3); Hematocrit 36.8 % (30.3-42.9); Lymphocytes # (Auto) 1.6 K/mm3 (1.2-5.4); Lymphocytes % (Auto) 26.9 % (13.4-35.0); Mean Corpuscular HGB Conc 33 % (30-34); Mean Corpuscular Volume 91 fl (79-97); Monocytes # (Auto) 0.7 K/mm3 (0.0-0.8); Monocytes % (Auto) 11.4 % (0.0-7.3); Platelet Count 250 K/mm3 (140-440); Red Blood Count 4.03 M/mm3 (3.65-5.03); Red Cell Distribution Width 14.9 % (13.2-15.2)
--- NOTE | 2020-05-21 14:42 | XRay Report ---
CHEST 2 VIEWS INDICATION / CLINICAL INFORMATION: copd, SOB. COMPARISON: Chest one view from 04/02/2020. FINDINGS: SUPPORT DEVICES: None. HEART / MEDIASTINUM: Stable. LUNGS / PLEURA: There are nonspecific bibasilar opacities. The upper lungs are clear. No significant pleural effusion. No pneumothorax. ADDITIONAL FINDINGS: No significant additional findings. IMPRESSION: Nonspecific bibasilar opacities could represent atelectasis or pneumonia. Continued radiographic foll ow-up to resolution is recommended. Signer Name: Jonas Vincent MD Signed: 05/21/2020 2:38 PM Workstation Name: [id number]
[2020-05-21 14:47] LABS: Alanine Aminotransferase 19 units/L (7-56); Albumin 3.8 g/dL (3.9-5); BUN/Creatinine Ratio 21; Blood Urea Nitrogen 17 mg/dL (7-17); Calcium 8.8 mg/dL (8.4-10.2); Hemolysis Index 7
[2020-05-21] MEDS ORDERED: IPRATROPIUM 0.02% NEBU 2.5 ML IH ONE (16:32)
[2020-05-21] MEDS ORDERED: dexAMETHasone 20 MG/5 ML VIAL IV ONE (16:32)
[2020-05-21] MEDS ORDERED: ALBUTEROL 2.5 MG/3 ML NEBU IH ONE (16:32)
--- NOTE | 2020-05-21 16:36 | Emergency Department Report ---
ED Asthma HPI - General Chief Complaint: Dyspnea/Respdistress Stated Complaint: KARINA Time Seen by Provider: 05/21/20 16:26 Source: patient Mode of arrival: Wheelchair Limitations: No Limitations - History of Present Illness Initial Comments: Patient is a 64-year-old F Andor[place] female with past medical history of COPD who is currently not on any treatments at this time who is presenting with 2 weeks of chest pain shortness of breath. States she feels a tightness in her chest with a cough. She is states she feels extremely short of breath especially with exertion has some mild body aches. She denies nausea vomiting diarrhea. She is not sure she has had fevers at home. Denies any contact with anyone with COVID- 19 to her knowledge. MD Complaint: wheezing - Related Data Home Medications Medication Instructions Recorded Confirmed Last Taken amLODIPine 10 mg PO DAILY 07/25/14 01/24/19 04/16/15 10 MG ALPRAZolam [Xanax TAB] 2 mg PO TID PRN 12/18/17 01/24/19 Unknown Oxycodone HCl/Acetaminophen 1 each PO Q12H PRN 12/18/17 01/24/19 Unknown [Percocet 10/325 mg] Previous Rx's Medication Instructions Recorded Last Taken Type Famotidine [Pepcid] 20 mg PO BID #30 tablet 01/25/19 Unknown Rx Albuterol Mdi (or & Nicu Only) 2 puff IH Q4HR PRN #1 inhalation 04/04/20 Unknown Rx [ProAir HFA Inhaler] Azithromycin [Zithromax Z-ANA LILIA] 0 mg PO DAILY #6 tab 04/04/20 Unknown Rx Budesonide/Formoterol Fumarate 10.2 gm IH BID #1 hfa.aer.ad 04/04/20 Unknown Rx [Symbicort 160-4.5 Mcg Inhaler] hydrALAZINE [Apresoline TAB] 50 mg PO Q8HR #90 tablet 04/04/20 Unknown Rx metFORMIN [Glucophage] 500 mg PO BID #60 tablet 04/04/20 Unknown Rx predniSONE [Deltasone] 60 mg PO QDAY #7 tablet 04/04/20 Unknown Rx Allergies Allergy/AdvReac Type Severity Reaction Status Date / Time codeine Allergy Swelling Verified 07/26/15 14:45 Penicillins Allergy Swelling Verified 06/15/16 14:45 ED Review of Systems ROS: Stated complaint: KARINA Other details as noted in HPI Comment: All other systems reviewed and negative ED Past Medical Hx - Past Medical History Previous Medical History?: Yes Hx Hypertension: Yes Hx Arthritis: Yes Hx Psychiatric Treatment: Yes (Bipolar) Hx Asthma: No Hx COPD: Yes Hx Tuberculosis: No Hx HIV: No Additional medical history: bronchitis, Substance abuser - Surgical History Additional Surgical History: right total knee replacement, hernia repair, shoulder surgery - Social History Smoking Status: Former Smoker - Medications Home Medications: Home Medications Medication Instructions Recorded Confirmed Last Taken Type amLODIPine 10 mg PO DAILY 07/25/14 01/24/19 04/16/15 History 10 MG ALPRAZolam [Xanax TAB] 2 mg PO TID PRN 12/18/17 01/24/19 Unknown History Oxycodone HCl/Acetaminophen 1 each PO Q12H PRN 12/18/17 01/24/19 Unknown History [Percocet 10/325 mg] Famotidine [Pepcid] 20 mg PO BID #30 tablet 01/25/19 Unknown Rx Albuterol Mdi (or & Nicu Only) 2 puff IH Q4HR PRN #1 inhalation 04/04/20 Unknown Rx [ProAir HFA Inhaler] Azithromycin [Zithromax Z-ANA LILIA] 0 mg PO DAILY #6 tab 04/04/20 Unknown Rx Budesonide/Formoterol Fumarate 10.2 gm IH BID #1 hfa.aer.ad 04/04/20 Unknown Rx [Symbicort 160-4.5 Mcg Inhaler] hydrALAZINE [Apresoline TAB] 50 mg PO Q8HR #90 tablet 04/04/20 Unknown Rx metFORMIN [Glucophage] 500 mg PO BID #60 tablet 04/04/20 Unknown Rx predniSONE [Deltasone] 60 mg PO QDAY #7 tablet 04/04/20 Unknown Rx ED Physical Exam - General Limitations: No Limitations General appearance: alert, in distress (mild resp distress) - Head Head exam: Present: atraumatic, normocephalic - Eye Eye exam: Present: normal appearance, PERRL, EOMI - ENT ENT exam: Present: mucous membranes moist - Neck Neck exam: Present: normal inspection - Respiratory Respiratory exam: Present: respiratory distress, wheezes. Absent: normal lung sounds bilaterally, rales, rhonchi, stridor, chest wall tenderness - Cardiovascular Cardiovascular Exam: Present: regular rate, normal rhythm, normal heart sounds. Absent: systolic murmur, diastolic murmur, rubs, gallop - GI/Abdominal GI/Abdominal exam: Present: soft, normal bowel sounds. Absent: distended, tenderness, guarding, rebound - Extremities Exam Extremities exam: Present: normal inspection - Back Exam Back exam: Present: normal inspection - Neurological Exam Neurological exam: Present: alert, oriented X3 - Psychiatric Psychiatric exam: Present: normal affect, normal mood - Skin Skin exam: Present: warm, dry, intact, normal color. Absent: rash ED Course Vital Signs 05/21/20 05/21/20 05/21/20 13:39 16:38 17:16 Temperature 98.4 F Pulse Rate 81 64 Pulse Rate [ Anterior Bilateral Throughout] Pulse Rate [ Anterior] Respiratory 24 12 Rate Respiratory Rate [Anterior Bilateral Throughout] Respiratory Rate [Anterior] Blood Pressure 152/89 Blood Pressure 175/99 [Right] O2 Sat by Pulse 100 100 96 Oximetry 05/21/20 05/21/20 05/21/20 17:30 17:46 18:00 Temperature Pulse Rate 67 69 69 Pulse Rate [ Anterior Bilateral Throughout] Pulse Rate [ Anterior] Respiratory 13 14 18 Rate Respiratory Rate [Anterior Bilateral Throughout] Respiratory Rate [Anterior] Blood Pressure 152/89 178/85 178/85 Blood Pressure [Right] O2 Sat by Pulse 97 99 100 Oximetry 05/21/20 05/21/20 05/21/20 18:16 18:30 18:46 Temperature Pulse Rate 69 71 83 Pulse Rate [ 71 Anterior Bilateral Throughout] Pulse Rate [ 65 Anterior] Respiratory 12 15 19 Rate Respiratory 20 Rate [Anterior Bilateral Throughout] Respiratory 22 Rate [Anterior] Blood Pressure 168/77 168/77 168/84 Blood Pressure [Right] O2 Sat by Pulse 98 100 98 Oximetry ED Medical Decision Making - Lab Data Result diagrams: 05/21/20 14:03 05/21/20 14:03 - EKG Data -: EKG Interpreted by Ms - EKG Data 05/21/20 17:14 EKG shows sinus rhythm rate of 66. Dearing is normal intervals are normal. No ST segment elevation or depression. Time of interpretation 1700 - Radiology Data [facility] [address] [place] [address] XRay Report Signed Patient: BRYANT FISHMAN MR#: [id number] : 1955 Acct:[id number] Age/Sex: 64 / F ADM Date: 05/21/20 Loc: ED Attending Dr: Ordering Physician: ELIZABETH PAULINO Date of Service: 05/21/20 Procedure(s): XR chest routine 2V Accession Number(s): [id number] cc: ELIZABETH PAULINO Fluoro Time In Minutes: CHEST 2 VIEWS INDICATION / CLINICAL INFORMATION: copd, SOB. COMPARISON: Chest one view from 04/02/2020. FINDINGS: SUPPORT DEVICES: None. HEART / MEDIASTINUM: Stable. LUNGS / PLEURA: There are nonspecific bibasilar opacities. The upper lungs are clear. No significant pleural effusion. No pneumothorax. ADDITIONAL FINDINGS: No significant additional findings. IMPRESSION: Nonspecific bibasilar opacities could represent atelectasis or pneumonia. Continued radiographic follow-up to resolution is recommended. Signer Name: Jonas Vincent MD Signed: 05/21/2020 2:38 PM Workstation Name: [id number] - Medical Decision Making After the patient received hour-long neb treatment she still having significant shortness of breath especially with any movement and wheezing. Chest x-ray shows bibasilar infiltrates consistent with a viral pneumonia. Will admit the patient for continued oxygen and neb treatments and cold with test in the morning. Patient mated to the hospitalist service. Critical Care Time: Yes (30) Critical care attestation.: If time is entered above; I have spent that time in minutes in the direct care of this critically ill patient, excluding procedure time. ED Disposition Clinical Impression: COPD exacerbation, Bronchospasm, acute, Respiratory distress, Hypertension, Suspected COVID-19 virus infection Pneumonia of both lower lobes Qualifiers: Pneumonia type: due to unspecified organism Qualified Code(s): J18.9 - Pneumonia, unspecified organism Disposition: OP ADMIT IP TO THIS HOSP Is pt being admited?: Yes Does the pt Need Aspirin: No Condition: Stable Instructions: Bacterial Pneumonia (ED), Chronic Obstructive Pulmonary Disease (ED), Hypertension (ED) Time of Disposition: 19:23
[2020-05-21 17:19] LABS: C-Reactive Protein 0.8 mg/dL (0.00-1.30)
[2020-05-21] MEDS ORDERED: levoFLOXacin 500 MG TAB PO ONE (17:42)
[2020-05-21] MEDS ORDERED: dexAMETHasone 20 MG/5 ML VIAL IM ONE (17:42)
[2020-05-21] MEDS ORDERED: METOPROLOL TARTRATE 50 MG TAB PO ONE (19:17)
[2020-05-21] MEDS ORDERED: ALBUTEROL 8.5 GM MDI INHALATION IH PRN ×2 (21:55→22:10)
[2020-05-21] MEDS ORDERED: NON-FORMULARY EACH (Alprazolam [Xanax Tab] 2 MG Tablet) PO PRN (21:55)
[2020-05-21] MEDS ORDERED: NON-FORMULARY EACH (Budesonide/Formoterol Fumarate [Symbicort 160-4.5 Mcg Inhaler] 10.2 GM IH SCH (22:00)
[2020-05-21] MEDS ORDERED: METOCLOPRAMIDE 10 MG/2 ML INJ IV PRN (22:01)
[2020-05-21] MEDS ORDERED: ACETAMINOPHEN 325 MG TAB PO PRN (22:01)
[2020-05-21] MEDS ORDERED: ONDANSETRON 4 MG/2 ML INJ IV PRN (22:01)
[2020-05-21] MEDS ORDERED: ALPRAZolam 1 MG TAB PO PRN (22:06)
--- NOTE | 2020-05-21 22:08 | History and Physical Report ---
History of Present Illness Date of examination: 05/21/20 Date of admission: 05/21/20 19:23 Chief complaint: SOB for 2 weeks History of present illness: 64-year-old female with past medical history of COPD who is currently not on any treatments at this time who is presenting with 2 weeks of chest pain shortness of breath. States she feels a tightness in her chest with a cough. She is states she feels extremely short of breath especially with ex ertion has some mild body aches. She denies nausea vomiting diarrhea. She is not sure she has had fevers at home. Denies any contact with anyone with COVID- 19 to her knowledge. - Past Medical History Previous Medical History?: Yes --Hypertension: Yes --Arthritis: Yes --Psychiatric Treatment: Yes (Bipolar) --COPD: Yes Additional medical history: bronchitis, Substance abuser - Surgical History Additional Surgical History: right total knee replacement, hernia repair, shoulder surgery - Social History Smoking Status: Former Smoker - Medications Home Medications: Home Medications Medication Instructions Recorded Confirmed Last Taken Type amLODIPine 10 mg PO DAILY 07/25/14 01/24/19 04/16/15 History 10 MG ALPRAZolam [Xanax TAB] 2 mg PO TID PRN 12/18/17 01/24/19 Unknown History Oxycodone HCl/Acetaminophen 1 each PO Q12H PRN 12/18/17 01/24/19 Unknown History [Percocet 10/325 mg] Famotidine [Pepcid] 20 mg PO BID #30 tablet 01/25/19 Unknown Rx Albuterol Mdi (or & Nicu Only) 2 puff IH Q4HR PRN #1 inhalation 04/04/20 Unknown Rx [ProAir HFA Inhaler] Azithromycin [Zithromax Z-ANA LILIA] 0 mg PO DAILY #6 tab 04/04/20 Unknown Rx Budesonide/Formoterol Fumarate 10.2 gm IH BID #1 hfa.aer.ad 04/04/20 Unknown Rx [Symbicort 160-4.5 Mcg Inhaler] hydrALAZINE [Apresoline TAB] 50 mg PO Q8HR #90 tablet 04/04/20 Unknown Rx metFORMIN [Glucophage] 500 mg PO BID #60 tablet 04/04/20 Unknown Rx predniSONE [Deltasone] 60 mg PO QDAY #7 tablet 04/04/20 Unknown Rx Medications and Allergies Allergies Allergy/AdvReac Type Severity Reaction Status Date / Time codeine Allergy Swelling Verified 07/26/15 14:45 Penicillins Allergy Swelling Verified 07/26/15 14:45 Home Medications Medication Instructions Recorded Confirmed Last Taken Type amLODIPine 10 mg PO DAILY 07/25/14 05/21/20 04/16/15 History 10 MG ALPRAZolam [Xanax TAB] 2 mg PO TID PRN 12/18/17 05/21/20 Unknown History Oxycodone HCl/Acetaminophen 1 each PO Q12H PRN 12/18/17 05/21/20 Unknown History [Percocet 10/325 mg] Famotidine [Pepcid] 20 mg PO BID #30 tablet 01/25/19 05/21/20 Unknown Rx Albuterol Mdi (or & Nicu Only) 2 puff IH Q4HR PRN #1 inhalation 04/04/20 05/21/20 Unknown Rx [ProAir HFA Inhaler] Azithromycin [Zithromax Z-ANA LILIA] 0 mg PO DAILY #6 tab 04/04/20 05/21/20 Unknown Rx Budesonide/Formoterol Fumarate 10.2 gm IH BID #1 hfa.aer.ad 04/04/20 05/21/20 Unknown Rx [Symbicort 160-4.5 Mcg Inhaler] hydrALAZINE [Apresoline TAB] 50 mg PO Q8HR #90 tablet 04/04/20 05/21/20 Unknown Rx metFORMIN [Glucophage] 500 mg PO BID #60 tablet 04/04/20 05/21/20 Unknown Rx predniSONE [Deltasone] 60 mg PO QDAY #7 tablet 04/04/20 05/21/20 Unknown Rx Active Meds: Active Medications Acetaminophen (Acetaminophen 325 Mg Tab) 650 mg PO Q4H PRN PRN Reason: Pain MILD(1-3)/Fever >100.5/SOTO Albuterol (Albuterol 8.5 Gm Mdi Inhalation) 2 puff IH Q4HR PRN PRN Reason: Shortness Of Breath Alprazolam (Alprazolam 1 Mg Tab) 2 mg PO TID PRN PRN Reason: Anxiety Amlodipine Besylate (Amlodipine 10 Mg Tab) 10 mg PO DAILY CHRISTOPHER Famotidine (Famotidine 20 Mg Tab) 20 mg PO BID CHRISTOPHER Hydralazine HCl (Hydralazine 25 Mg Tab) 50 mg PO Q8HR CHRISTOPHER Hydromorphone HCl (Hydromorphone 1 Mg/1 Ml Inj) 0.5 mg IV Q3H PRN PRN Reason: Pain , Severe (7-10) Metformin HCl (Metformin 500 Mg Tab) 500 mg PO BIDDIAB CHRISTOPHER Metoclopramide HCl (Metoclopramide 10 Mg/2 Ml Inj) 10 mg IV Q6H PRN PRN Reason: Nausea And Vomiting Miscellaneous Medication (Budesonide/Formoterol Fumarate [Symbicort 160-4.5 Mcg Inhaler]) 10.2 gm IH BID [facility] Ondansetron HCl (Ondansetron 4 Mg/2 Ml Inj) 4 mg IV Q8H PRN PRN Reason: Nausea And Vomiting Oxycodone/Acetaminophen (Oxycodone /Acetaminophen 5-325mg Tab) 1 tab PO Q6H PRN PRN Reason: Pain, Moderate (4-6) Sodium Chloride (Sodium Chloride 0.9% 10 Ml Flush Syringe) 10 ml IV BID CHRISTOPHER Sodium Chloride (Sodium Chloride 0.9% 10 Ml Flush Syringe) 10 ml IV PRN PRN PRN Reason: LINE FLUSH Review of Systems All systems: negative Constitutional: no fever, no chills, no sweats Ears, nose, mouth and throat: no nasal discharge Respiratory: cough, dyspnea on exertion, congestion, wheezing Gastrointestinal: no abdominal pain, no nausea, no vomiting Genitourinary Female: no menorrhagia, no dysuria Musculoskeletal: no neck stiffness, no neck pain Integumentary: no redness, no sores Neurological: no head injury, no transient paralysis, no paralysis, no weakness Psychiatric: no anxiety, no memory loss, no change in sleep habits, no sleep disturbances, no insomnia, no hypersomnia, no change in appetite Endocrine: no cold intolerance, no heat intolerance, no polyphagia, no excessive thirst, no polydipsia, no polyuria Hematologic/Lymphatic: no easy bruising, no easy bleeding Allergic/Immunologic: no urticaria, no allergic rhinitis, no wheezing Exam - Constitutional Vitals: Temp Pulse Resp BP Pulse Ox 98.4 F 88 19 140/77 98 05/21/20 13:39 05/21/20 21:13 05/21/20 18:46 05/21/20 21:13 05/21/20 18:46 General appearance: Present: mild distress, well-nourished - EENT Eyes: Present: PERRL ENT: hearing intact, clear oral mucosa - Neck Neck: Present: supple, normal ROM - Respiratory Respiratory effort: normal Respiratory: bilateral: CTA, diminished, wheezing - Cardiovascular Heart rate: 78 Rhythm: regular Heart Sounds: Present: S1 & S2. Absent: rub, click - Extremities Extremities: pulses symmetrical, No edema Peripheral Pulses: within normal limits - Abdominal General gastrointestinal: Present: soft, non-tender, non-distended, normal bowel sounds Female genitourinary: Present: normal - Integumentary Integumentary: Present: clear, warm, dry - Musculoskeletal Musculoskeletal: gait normal, strength equal bilaterally - Psychiatric Psychiatric: appropriate mood/affect, intact judgment & insight - Neurologic Neurologic: CNII-XII intact, moves all extremities Results - Labs CBC & Chem 7: 05/22/20 04:44 05/22/20 04:44 Labs: Laboratory Last Values WBC 5.9 K/mm3 (4.5-11.0) 05/21/20 14:03 RBC 4.03 M/mm3 (3.65-5.03) 05/21/20 14:03 Hgb 12.0 gm/dl (10.1-14.3) 05/21/20 14:03 Hct 36.8 % (30.3-42.9) 05/21/20 14:03 MCV 91 fl (79-97) 05/21/20 14:03 MCH 30 pg (28-32) 05/21/20 14:03 MCHC 33 % (30-34) 05/21/20 14:03 RDW 14.9 % (13.2-15.2) 05/21/20 14:03 Plt Count 250 K/mm3 (140-440) 05/21/20 14:03 Lymph % (Auto) 26.9 % (13.4-35.0) 05/21/20 14:03 Price % (Auto) 11.4 % (0.0-7.3) H 05/21/20 14:03 Eos % (Auto) 1.4 % (0.0-4.3) 05/21/20 14:03 Baso % (Auto) 0.8 % (0.0-1.8) 05/21/20 14:03 Lymph # (Auto) 1.6 K/mm3 (1.2-5.4) 05/21/20 14:03 Price # (Auto) 0.7 K/mm3 (0.0-0.8) 05/21/20 14:03 Eos # (Auto) 0.1 K/mm3 (0.0-0.4) 05/21/20 14:03 Baso # (Auto) 0.0 K/mm3 (0.0-0.1) 05/21/20 14:03 Seg Neutrophils % 59.5 % (40.0-70.0) 05/21/20 14:03 Seg Neutrophils # 3.5 K/mm3 (1.8-7.7) 05/21/20 14:03 D-Dimer 173.47 ng/mlDDU (0-234) 05/21/20 16:47 Sodium 140 mmol/L (137-145) 05/21/20 14:03 Potassium 4.3 mmol/L (3.6-5.0) 05/21/20 14:03 Chloride 103.0 mmol/L (98-107) 05/21/20 14:03 Carbon Dioxide 28 mmol/L (22-30) 05/21/20 14:03 Anion Gap 13 mmol/L 05/21/20 14:03 BUN 17 mg/dL (7-17) 05/21/20 14:03 Creatinine 0.8 mg/dL (0.6-1.2) 05/21/20 14:03 Estimated GFR > 60 ml/min 05/21/20 14:03 BUN/Creatinine Ratio 21 % 05/21/20 14:03 Glucose 84 mg/dL (65-100) 05/21/20 14:03 Lactic Acid 1.60 mmol/L (0.7-2.0) 05/21/20 19:22 Calcium 8.8 mg/dL (8.4-10.2) 05/21/20 14:03 Ferritin 24.9 ng/mL (10.0-200.0) 05/21/20 16:47 Total Bilirubin 0.20 mg/dL (0.1-1.2) 05/21/20 14:03 AST 14 units/L (5-40) 05/21/20 14:03 ALT 19 units/L (7-56) 05/21/20 14:03 Alkaline Phosphatase 125 units/L (35-129) 05/21/20 14:03 Lactate Dehydrogenase 312 units/L (91-180) H 05/21/20 16:47 C-Reactive Protein 0.80 mg/dL (0.00-1.30) 05/21/20 16:47 Total Protein 7.2 g/dL (6.3-8.2) 05/21/20 14:03 Albumin 3.8 g/dL (3.9-5) L 05/21/20 14:03 Albumin/Globulin Ratio 1.1 % 05/21/20 14:03 Short CBC 05/21/20 05/22/20 Range/Units 14:03 04:44 WBC 5.9 7.0 (4.5-11.0) K/mm3 Hgb 12.0 12.9 (10.1-14.3) gm/dl Hct 36.8 39.6 (30.3-42.9) % Plt Count 250 264 (140-440) K/mm3 BMP 05/21/20 05/22/20 14:03 04:44 Sodium 140 139 Potassium 4.3 4.7 Chloride 103.0 100.6 Carbon Dioxide 28 30 BUN 17 16 Creatinine 0.8 0.7 Glucose 84 150 H Calcium 8.8 9.0 Liver Function 05/21/20 05/22/20 Range/Units 14:03 04:44 Total Bilirubin 0.20 0.20 (0.1-1.2) mg/dL AST 14 16 (5-40) units/L ALT 19 21 (7-56) units/L Alkaline Phosphatase 125 128 (35-129) units/L Albumin 3.8 L 4.0 (3.9-5) g/dL Microbiology: Microbiology 05/21/20 16:47 Peripheral/Venous Blood Culture - Preliminary Culture in Progress 05/21/20 16:47 Peripheral/Venous Blood Culture - Preliminary Culture in Progress Assessment and Plan Advance Directives: Yes (Full code) VTE prophylaxis?: Chemical Plan of care discussed with patient/family: Yes - Patient Problems (1) Acute respiratory failure with hypoxia Current Visit: Yes Status: Acute Plan to address problem: O2 supplements as necessary (2) Bilateral pneumonia Current Visit: Yes Status: Acute Plan to address problem: Treat asCAP for now (3) Suspected COVID-19 virus infection Current Visit: Yes Status: Acute Plan to address problem: Yun virus pcr in am (4) T2DM (type 2 diabetes mellitus) Current Visit: Yes Status: Chronic Qualifiers: Diabetes mellitus snf insulin use: unspecified snf insulin use status Plan to address problem: Coverage for now Check A1c (5) Hypertension Current Visit: Yes Status: Chronic Qualifiers: Hypertension type: essential hypertension Qualified Code(s): I10 - Esse ntial (primary) hypertension Plan to address problem: Cont antihypertensives (6) RAYO (generalized anxiety disorder) Current Visit: Yes Status: Chronic Plan to address problem: Cont Xanax (7) COPD with exacerbation Current Visit: Yes Status: Acute Plan to address problem: Albuterol MDI Juancarlosonebs prn (8) Chronic GERD Current Visit: Yes Status: Chronic Plan to address problem: On PPI;s (9) DVT prophylaxis Current Visit: Yes Status: Acute Plan to address problem: On Lovenox
[2020-05-21] MEDS ORDERED: ALBUTEROL 2.5 MG/3 ML NEBU IH PRN (22:09)
[2020-05-21] MEDS: hydrALAZINE 25 MG TAB PO SCH (23:11)
[2020-05-21] MEDS: FAMOTIDINE 20 MG TAB PO SCH (23:13)
[2020-05-21] MEDS: amLODIPine 10 MG TAB PO SCH (23:13)
[2020-05-22 05:52] LABS: Basophils % (Auto) 0.1 % (0.0-1.8); Hematocrit 39.6 % (30.3-42.9); Hemoglobin 12.9 gm/dl (10.1-14.3); Lymphocytes # (Auto) 0.8 K/mm3 (1.2-5.4); Lymphocytes % (Auto) 11.5 % (13.4-35.0); Mean Corpuscular HGB Conc 33 % (30-34); Mean Corpuscular Volume 91 fl (79-97); Monocytes # (Auto) 0.1 K/mm3 (0.0-0.8); Monocytes % (Auto) 1.5 % (0.0-7.3); Platelet Count 264 K/mm3 (140-440); Red Blood Count 4.34 M/mm3 (3.65-5.03); Red Cell Distribution Width 15.1 % (13.2-15.2)
[2020-05-22] MEDS: hydrALAZINE 25 MG TAB PO SCH ×3 (05:56→21:30)
[2020-05-22 06:12] LABS: Alanine Aminotransferase 21 units/L (7-56); Blood Urea Nitrogen 16 mg/dL (7-17); Hemolysis Index 2
[2020-05-22 06:16] LABS: BUN/Creatinine Ratio 23
[2020-05-22] MEDS: ARFORMOTEROL 15 MCG/2 ML NEBU IH SCH ×2 (07:22→19:22)
[2020-05-22] MEDS ORDERED: BUDESONIDE 0.5 MG/2 ML NEBU IH SCH (08:00)
[2020-05-22] MEDS ORDERED: dexAMETHasone 4 MG/ML VIAL IV SCH (10:00)
[2020-05-22] MEDS: metFORMIN 500 MG TAB PO SCH ×2 (10:01→16:30)
[2020-05-22] MEDS: INSULIN LISPRO 100 UNIT/ML SUB-Q SCH ×4 (10:01→21:31)
[2020-05-22] MEDS: FAMOTIDINE 20 MG TAB PO SCH ×2 (10:02→21:30)
[2020-05-22] MEDS: amLODIPine 10 MG TAB PO SCH (10:02)
[2020-05-22] MEDS: oxyCODONE /ACETAMINOPHEN 5-325MG TAB PO PRN (14:55)
[2020-05-22] MEDS: BUDESONIDE 0.5 MG/2 ML NEBU IH SCH (19:23)
[2020-05-22] MEDS: HYDROmorphone 1 MG/1 ML INJ IV PRN (20:16)
[2020-05-22] MEDS: ENOXAPARIN 40 MG/0.4 ML INJ SUB-Q SCH (21:30)
--- NOTE | 2020-05-22 23:07 | Progress Note ---
Assessment and Plan - Patient Problems (1) Acute respiratory failure with hypoxia Current Visit: Yes Status: Acute Plan to address problem: O2 supplements as necessary (2) Bilateral pneumonia Current Visit: Yes Status: Acute Plan to address problem: Treat as CAP for now (3) Suspected COVID-19 virus infection Current Visit: Yes Status: Acute Plan to address problem: Yun virus pcr negative (4) T2DM (type 2 diabetes mellitus) Current Visit: Yes Status: Chronic Qualifiers: Diabetes mellitus salvage determiner insulin use: unspecified retirement insulin use status Plan to address problem: Coverage for now A1c 7.5 Add glimepiride 2 mg once a day Patient only on Metformin (5) Hypertension Current Visit: Yes Status: Chronic Qualifiers: Hypertension type: essential hypertension Qualified Code(s): I10 - Essential (primary) hypertension Plan to address problem: Cont antihypertensives (6) RAYO (generalized anxiety disorder) Current Visit: Yes Status: Chronic Plan to address problem: Cont Xanax (7) COPD with exacerbation Current Visit: Yes Status: Acute Plan to address problem: Albuterol MDI Duonebs prn (8) Chronic GERD Current Visit: Yes Status: Chronic Plan to address problem: On PPI;s (9) DVT prophylaxis Current Visit: Yes Status: Acute Plan to address problem: On Lovenox (10) Discharge planning issues Current Visit: Yes Status: Acute Plan to address problem: Changed to inpatient Possible discharge 24 to 48 hours Subjective Date of service: 05/22/20 Principal diagnosis: Respiratory failure with hypoxia Interval history: 64-year-old female with past medical history of COPD who is currently not on any treatments at this time who is presenting with 2 weeks of chest pain shortness of breath. States she feels a tightness in her chest with a cough. She is states she feels extremely short of breath especially with exertion has some mild body aches. She denies nausea vomiting diarrhea. She is not sure she has had fevers at home. Denies any contact with anyone with COVID- 19 to her knowledge. 05/22/2020 Patient is Covid negative Patient is still wheezing and short of breath Objective - Constitutional Vitals: Vital Signs - 12hr 05/22/20 05/22/20 05/22/20 11:33 14:55 19:24 Temperature 97.5 F L Pulse Rate 64 Pulse Rate [ 74 Anterior Bilateral Throughout] Respiratory 22 20 Rate Respiratory 20 Rate [Anterior Bilateral Throughout] Blood Pressure 144/95 O2 Sat by Pulse 100 Oximetry 05/22/20 19:26 Temperature Pulse Rate Pulse Rate [ Anterior Bilateral Throughout] Respiratory Rate Respiratory Rate [Anterior Bilateral Throughout] Blood Pressure O2 Sat by Pulse 100 Oximetry General appearance: Present: mild distress, well-nourished - EENT Eyes: PERRL, EOM intact ENT: hearing intact, clear oral mucosa Ears: bilateral: normal - Neck Neck: supple, normal ROM - Respiratory Respiratory effort: normal Respiratory: bilateral: CTA, rhonchi, wheezing - Breasts Breasts: normal - Cardiovascular Heart rate: 78 Rhythm: regular Heart Sounds: Present: S1 & S2. Absent: gallop, rub Extremities: pulses intact, No edema, normal color, Full ROM - Gastrointestinal General gastrointestinal: Present: soft, non-tender, non-distended, normal bowel sounds - Genitourinary Female genitourinary: normal - Integumentary Integumentary: clear, warm, dry - Musculoskeletal Musculoskeletal: 1, strength equal bilaterally - Neurologic Neurologic: moves all extremities - Psychiatric Psychiatric: memory intact, appropriate mood/affect, intact judgment & insight - Labs CBC & Chem 7: 05/22/20 04:44 05/22/20 04:44 Labs: Abnormal lab results 05/21/20 05/22/20 05/22/20 Range/Units 23:14 04:44 04:44 Lymph % (Auto) 11.5 L (13.4-35.0) % Lymph # (Auto) 0.8 L (1.2-5.4) K/mm3 Seg Neutrophils % 86.9 H (40.0-70.0) % Glucose 150 H (65-100) mg/dL POC Glucose 183 H (70-105) mg/dL Hemoglobin A1c (4-6) % 05/22/20 05/22/20 05/22/20 Range/Units 04:44 07:50 11:32 Lymph % (Auto) (13.4-35.0) % Lymph # (Auto) (1.2-5.4) K/mm3 Seg Neutrophils % (40.0-70.0) % Glucose (65-100) mg/dL POC Glucose 124 H 143 H (70-105) mg/dL Hemoglobin A1c 7.5 H (4-6) %
[2020-05-23] MEDS: oxyCODONE /ACETAMINOPHEN 5-325MG TAB PO PRN ×3 (00:23→19:36)
[2020-05-23] MEDS: hydrALAZINE 25 MG TAB PO SCH ×3 (06:21→21:27)
[2020-05-23] MEDS: INSULIN LISPRO 100 UNIT/ML SUB-Q SCH ×4 (07:30→21:29)
[2020-05-23] MEDS: ARFORMOTEROL 15 MCG/2 ML NEBU IH SCH ×2 (07:53→20:34)
[2020-05-23] MEDS: BUDESONIDE 0.5 MG/2 ML NEBU IH SCH ×2 (07:57→20:34)
[2020-05-23] MEDS: metFORMIN 500 MG TAB PO SCH ×2 (08:49→16:19)
[2020-05-23] MEDS: GLIMEPIRIDE 2 MG TAB PO SCH (09:56)
[2020-05-23] MEDS: amLODIPine 10 MG TAB PO SCH (09:56)
[2020-05-23] MEDS: FAMOTIDINE 20 MG TAB PO SCH ×2 (09:56→21:27)
[2020-05-23] MEDS: HYDROmorphone 1 MG/1 ML INJ IV PRN (09:57)
[2020-05-23] MEDS: DEXAMETHASONE 4 MG TAB PO SCH (10:03)
[2020-05-23 10:04] LABS: BUN/Creatinine Ratio 21; Blood Urea Nitrogen 17 mg/dL (7-17); Hemolysis Index 1
--- NOTE | 2020-05-23 14:53 | Progress Note ---
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 termite technician insulin use status Plan to address problem: Coverage for now A1c 7.5 Add glimepiride 2 mg once a day Patient only on Metformin -- Hypertension Current Visit: Yes Status: Chronic Qualifiers: Hypertension type: essential hypertension Qualified Code(s): I10 - Essential (primary) hypertension Plan to address problem: Cont antihypertensives -- RAYO (generalized anxiety disorder) Current Visit: Yes Status: Chronic Plan to address problem: Cont Xanax -- COPD with exacerbation Current Visit: Yes Status: Acute Plan to address problem: Albuterol MDI Duonebs prn -- Chronic GERD Current Visit: Yes Status: Chronic Plan to address problem: On PPI;s -- DVT prophylaxis Current Visit: Yes Status: Acute Plan to address problem: On Lovenox --Morbid obesity Need outpatient sleep study and dietary and exercise regimen to reduce weight when clinically more stable as outpatient -- Discharge planning issues Current Visit: Yes Status: Acute Plan to address problem: Changed to inpatient Possible discharge 24 to 48 hours Interval history: 64-year-old female with past medical history of COPD who is currently not on any treatments at this time who is presenting with 2 weeks of chest pain shortness of breath. States she feels a tightness in her chest with a cough. She is states she feels extremely short of breath especially with exertion has some mild body aches. She denies nausea vomiting diarrhea. She is not sure she has had fevers at home. Denies any contact with anyone with COVID- 19 to her knowledge. 05/22/2020 Patient is Covid negative Patient is still wheezing and short of breath 05/23/20: Continue to treat with empiric antibiotics and scheduled nebulizer. Continue empiric steroid. Wean off O2 as tolerated. If clinically stable and off oxygen possible DC home tomorrow. Assess for home O2 requirement. Subjective Date of service: 05/23/20 Principal diagnosis: Respiratory failure with hypoxia Interval history: Patient seen and examined. Medical records and medication list reviewed. No acute event overnight noted by the RN. Patient complains of difficulty breathing on ambulation and mild exertion. Patient is tolerating diet. Discussed plan of care at bedside with patient. Objective - Exam Narrative Exam: GENERAL: well-developed morbidly obese -[place] female lying on bed appeared to be in no discomfort. HEENT: Normocephalic. Atraumatic. No conjunctival congestion or icterus. Patient has moist mucous membranes. NECK: Supple. Trachea midline. CHEST/LUNGS: Diminished breath sound auscultated bilaterally, breathing nonlabored. No wheezes crackles or rhonchi. HEART/CARDIOVASCULAR: Regular in rate and rhythm. S1 and S2 positive. ABDOMEN: Abdomen is soft, nontender. Patient has normal bowel sounds. SKIN: There is no rash. Warm and dry. NEURO: No focal motor deficit. Follows command. MUSCULOSKELETAL: No joint effusion or tenderness. EXTRIMITY: No edema, no cyanosis or clubbing. PSYCH: Cooperative. - Constitutional Vitals: Vital Signs - 12hr 05/23/20 05/23/20 05/23/20 06:05 08:00 09:57 Temperature 98.2 F Pulse Rate 63 Pulse Rate [ 63 Anterior Bilateral Throughout] Respiratory 20 20 Rate Respiratory 18 Rate [Anterior Bilateral Throughout] Blood Pressure 136/79 Blood Pressure [Right] O2 Sat by Pulse 100 Oximetry 05/23/20 05/23/20 05/23/20 10:00 13:36 13:37 Temperature 98.2 F Pulse Rate 85 85 Pulse Rate [ Anterior Bilateral Throughout] Respiratory 20 Rate Respiratory Rate [Anterior Bilateral Throughout] Blood Pressure Blood Pressure 135/80 [Right] O2 Sat by Pulse 100 Oximetry - Labs CBC & Chem 7: 05/22/20 04:44 05/23/20 08:04 Labs: Abnormal lab results 05/22/20 05/22/20 05/22/20 Range/Units 11:32 16:15 21:18 Carbon Dioxide (22-30) mmol/L Glucose (65-100) mg/dL POC Glucose 143 H 146 H 122 H (70-105) mg/dL 05/23/20 05/23/20 Range/Units 08:04 08:10 Carbon Dioxide 33 H (22-30) mmol/L Glucose 104 H (65-100) mg/dL POC Glucose 108 H (70-105) mg/dL
[2020-05-23] MEDS: ENOXAPARIN 40 MG/0.4 ML INJ SUB-Q SCH (21:27)
[2020-05-24] MEDS: hydrALAZINE 25 MG TAB PO SCH (05:24)
[2020-05-24] MEDS: ARFORMOTEROL 15 MCG/2 ML NEBU IH SCH (08:19)
[2020-05-24] MEDS: BUDESONIDE 0.5 MG/2 ML NEBU IH SCH (08:19)
[2020-05-24] MEDS: INSULIN LISPRO 100 UNIT/ML SUB-Q SCH ×2 (08:25→12:49)
[2020-05-24] MEDS: metFORMIN 500 MG TAB PO SCH (09:40)
[2020-05-24] MEDS: GLIMEPIRIDE 2 MG TAB PO SCH (09:41)
[2020-05-24] MEDS: FAMOTIDINE 20 MG TAB PO SCH (09:41)
[2020-05-24] MEDS: DEXAMETHASONE 4 MG TAB PO SCH (09:41)
[2020-05-24] MEDS: amLODIPine 10 MG TAB PO SCH (09:48)
[2020-05-24] MEDS ORDERED: levoFLOXacin 750 MG TAB PO SCH (10:00)
[2020-05-24 11:57] VITALS: BP 148/74
--- NOTE | 2020-05-24 12:40 | Discharge Summary ---
Providers - Providers Date of Admission: 05/22/20 08:00 Date of discharge: 05/24/20 Attending physician: SILVIA KIM Primary care physician: SOCIAL SERVICES SPECIALIST Hospitalization Condition: Stable Hospital course: This is a 64-year-old -Russian female with past medical history of COPD who is currently not on any treatment at this time presented to the hospital wi th 2 weeks history of chest pain and shortness of breath along with cough. She stated that she feels extremely short of breath especially with exertion with some mild body aches. Chest x-ray in the ER showed bibasilar opacities. Patient was admitted to the hospital with acute hypoxic respiratory failure bilateral pneumonia and suspicion for Covid. Covid test was ordered and that was negative. Patient was admitted to medical floor with scheduled nebs, iv abx, iv steroids and supplemental O2 to keep O2 sat at 94%. Patients symptom improved with medical management. She was assessed for home O2 requirement and her oxygen saturation dropped on ambulation. Home oxygen was arranged and patient was then discharged home in stable condition with outpt f/u. Discharge plan and management was thoroughly discussed with the patient and she verbalized understanding. She will follow-up with germination testing manager as outpatient in 1 to 2 weeks for lung function test and an outpatient sleep study. Disposition: [id number] HOME UNDER HOME [facility] Final Discharge Diagnosis (Prints w/discharge instructions): Acute respiratory failure with hypoxia, bilateral pneumonia likely community-acquired, diabetes mellitus type 2, hypertension, general anxiety disorder, COPD with exacerbation, chronic GERD, suspected COVID-19 infection ruled out, morbid obesity. Time spent for discharge: 34 minutes Core Measure Documentation - Palliative Care Palliative Care/ Comfort Measures: Not Applicable - Core Measures Any of the following diagnoses?: none Exam - Physical Exam Narrative exam: GENERAL: well-developed morbidly obese -[place] female lying on bed appeared to be in no discomfort. HEENT: Normocephalic. Atraumatic. No conjunctival congestion or icterus. Patient has moist mucous membranes. NECK: Supple. Trachea midline. CHEST/LUNGS: Diminished breath sound auscultated bilaterally, breathing nonlabored. No wheezes crackles or rhonchi. HEART/CARDIOVASCULAR: Regular in rate and rhythm. S1 and S2 positive. ABDOMEN: Abdomen is soft, nontender. Patient has normal bowel sounds. SKIN: There is no rash. Warm and dry. NEURO: No focal motor deficit. Follows command. MUSCULOSKELETAL: No joint effusion or tenderness. EXTRIMITY: No edema, no cyanosis or clubbing. PSYCH: Cooperative. - Constitutional Vitals: Temp Pulse Resp BP Pulse Ox 98.2 F 85 24 148/74 95 05/24/20 10:54 05/24/20 09:48 05/24/20 10:54 05/24/20 10:54 05/24/20 10:54 Plan Activity: advance as tolerated Weight Bearing Status: Weight Bear as Tolerated Diet: low fat, low cholesterol Special Instructions: home oxygen via (2L n/c) Additional Instructions: Please follow-up with germination testing manager for outpatient sleep study and lung function test Follow up with: PRIMARY CAREMD [Primary Care Provider] - 3-5 Days MARÍA CHÁVEZ MD [Staff Physician] - 7 Days Prescriptions: predniSONE [Deltasone] 60 mg PO QDAY #4 tablet levoFLOXacin [Levaquin TAB] 750 mg PO DAILY #4 tablet Albuterol Mdi (or & Nicu Only) [ProAir HFA Inhaler] 2 puff IH Q4HR PRN #30 inhalation PRN Reason: Shortness Of Breath Budesonide/Formoterol Fumarate [Symbicort 160-4.5 Mcg Inhaler] 10.2 gm IH BID #1 hfa.aer.ad
--- NOTE | 2020-05-25 11:32 | Electrocardiograph Report ---
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
== END 2020-05-24 18:32 | disposition home health service (06) | DRG 193 ==
LOC: ED 13:33 → 3A 19:23 → OBSVTOIN 05-22 08:00
PROVIDERS: ADMIT Internal Medicine; ATTEND Internal Medicine
DX: J18.9 Pneumonia, unspecified organism (principal); J96.01 Acute respiratory failure with hypoxia; Z20.822 Contact with and (suspected) exposure to COVID-19; J44.1 Chronic obstructive pulmonary disease with (acute) exacerbation; F31.9 Bipolar disorder, unspecified; M19.90 Unspecified osteoarthritis, unspecified site; E66.01 Morbid (severe) obesity due to excess calories; F41.1 Generalized anxiety disorder; K21.9 Gastro-esophageal reflux disease without esophagitis; E11.9 Type 2 diabetes mellitus without complications; I10 Essential (primary) hypertension; J44.0 Chronic obstructive pulmonary disease with (acute) lower respiratory infection; Z79.899 Other long term (current) drug therapy; Z79.52 Long term (current) use of systemic steroids; Z87.891 Personal history of nicotine dependence; Z79.84 Long term (current) use of oral hypoglycemic drugs; Z68.43 Body mass index [BMI] 50.0-59.9, adult
CPT/HCPCS: 36415; 71046; 80048; 80053; 82140; 82728; 82962; 83036; 83615; 84145; 85025; 85379; 86140; 87040; 93005; 94640; 94644; 96365; 96375; G0378; J1100; J1170; J1650; J1815; J1956; J8540; U0003

== ENCOUNTER 2020-11-05 22:45 | Emergency (ER) | payer MEDICAID ==
[2020-11-06] MEDS ORDERED: dexAMETHasone 20 MG/5 ML VIAL IM ONE (01:06)
[2020-11-06] MEDS ORDERED: HYDROmorphone 2 MG TAB PO ONE (01:08)
[2020-11-06] MEDS ORDERED: ONDANSETRON 4 MG ODT TAB PO ONE (01:08)
[2020-11-06 01:11] VITALS: BP 185/106
[2020-11-06 01:52] LABS: Bilirubin,Urine NEG (Negative); Blood,Urine LG (Negative); Color,Urine Yellow (Yellow); Mucus,Urine 1+ /HPF; Urobilinogen,Urine < 2.0 mg/dL (<2.0)
[2020-11-06 01:53] LABS: RBC,Urine > 182.0 /HPF (0.0-6.0)
--- NOTE | 2020-11-06 03:42 | Emergency Department Report ---
ED Back Pain/Injury HPI - General Chief Complaint: Back Pain/Injury Stated Complaint: LOWER BACK/LEG PAIN Source: patient Limitations: No Limitations - History of Present Illness Initial Comments: Patient is a 65-year-old -Swiss female with a history of COPD, chronic osteoarthritis, chronic degenerative lumbar disc disease, [id number] diabetes, hypertension who presents to the ED with complaint of acute exacerbation of her chronic low back pain that radiates to the right leg for the last 2 weeks, worse in the last 2 days. Patient states that she usually takes Percocet 10 mg - 325 mg tablets with Neurontin but that these medications have not helped control her pain. Patient states that the pain is sharp, constant and persistent and that she is unable to sleep because of worsening pain. Patient denies fall, traumatic injury, heavy lifting, nausea, vomiting, dysuria, urinary frequency and urgency, chest pain or shortness of breath, numbness and tingling or weakness of lower extremities bilaterally, urinary retention, bowel incontinence or saddle paresthesia. MD Complaint: back pain, other (Chronic low back pain exacerbation; pain radiates to the right leg) -: Gradual, days(s) (2), year(s) (10) Similar Symptoms Previously: Yes (Chronic low back pain that radiates to the right leg) Place: home Radiation: right leg Severity: severe Severity scale (0 -10): 9 Quality: sharp, aching Consistency: constant Improves With: none Worsens With: movement Context: turning/twisting Associated Symptoms: denies other symptoms, difficulty walking. denies: confusion, weakness, chest pain, numbness, cough, difficulty urinating, diaphoresis, incontinence, constipation, headaches, abdominal pain, malaise, nausea/vomiting, seizure, shortness of breath, other Treatments Prior to Arrival: NSAIDS, prescription analgesics - Related Data Home Medications Medication Instructions Recorded Confirmed Last Taken amLODIPine 10 mg PO DAILY 07/25/14 05/21/20 04/16/15 10 MG ALPRAZolam [Xanax TAB] 2 mg PO TID PRN 12/18/17 05/21/20 Unknown Previous Rx's Medication Instructions Recorded Last Taken Type Famotidine [Pepcid] 20 mg PO BID #30 tablet 01/25/19 Unknown Rx hydrALAZINE [Apresoline TAB] 50 mg PO Q8HR #90 tablet 04/04/20 Unknown Rx metFORMIN [Glucophage] 500 mg PO BID #60 tablet 04/04/20 Unknown Rx Albuterol Mdi (or & Nicu Only) 2 puff IH Q4HR PRN #30 inhalation 05/24/20 Unknown Rx [ProAir HFA Inhaler] Budesonide/Formoterol Fumarate 10.2 gm IH BID #1 hfa.aer.ad 05/24/20 Unknown Rx [Symbicort 160-4.5 Mcg Inhaler] levoFLOXacin [Levaquin TAB] 750 mg PO DAILY #4 tablet 05/24/20 Unknown Rx predniSONE [Deltasone] 60 mg PO QDAY #4 tablet 05/24/20 Unknown Rx Allergies Allergy/AdvReac Type Severity Reaction Status Date / Time codeine Allergy Swelling Verified 07/26/15 14:45 Penicillins Allergy Swelling Verified 07/26/15 14:45 ED Review of Systems ROS: Stated complaint: LOWER BACK/LEG PAIN Other details as noted in HPI Constitutional: denies: chills, fever Eyes: denies: eye pain, eye discharge, vision change ENT: denies: ear pain, throat pain Respiratory: denies: cough, shortness of breath, wheezing Cardiovascular: denies: chest pain, palpitations Endocrine: no symptoms reported Gastrointestinal: denies: abdominal pain, nausea, vomiting, diarrhea Genitourinary: denies: urgency, dysuria, discharge Musculoskeletal: back pain (Low back pain that radiates to the right leg), arthralgia (Chronic low back pain that radiates to the right lower), myalgia. denies: joint swelling Skin: denies: rash, lesions Neurological: denies: headache, weakness, paresthesias Psychiatric: denies: anxiety, depression Hematological/Lymphatic: denies: easy bleeding, easy bruising ED Past Medical Hx - Past Medical History Hx Hypertension: Yes Hx Diabetes: Yes Hx Arthritis: Yes Hx Psychiatric Treatment: Yes (Bipolar) Hx Asthma: No Hx COPD: Yes Hx Tuberculosis: No Hx HIV: No Additional medical history: bronchitis, Substance abuser - Surgical History Additional Surgical History: right total knee replacement, hernia repair, shoulder surgery - Social History Smoking Status: Never Smoker Substance Use Type: None - Medications Home Medications: Home Medications Medication Instructions Recorded Confirmed Last Taken Type amLODIPine 10 mg PO DAILY 07/25/14 05/21/20 04/16/15 History 10 MG ALPRAZolam [Xanax TAB] 2 mg PO TID PRN 12/18/17 05/21/20 Unknown History Famotidine [Pepcid] 20 mg PO BID #30 tablet 01/25/19 05/21/20 Unknown Rx hydrALAZINE [Apresoline TAB] 50 mg PO Q8HR #90 tablet 04/04/20 05/21/20 Unknown Rx metFORMIN [Glucophage] 500 mg PO BID #60 tablet 04/04/20 05/21/20 Unknown Rx Albuterol Mdi (or & Nicu Only) 2 puff IH Q4HR PRN #30 inhalation 05/24/20 Unknown Rx [ProAir HFA Inhaler] Budesonide/Formoterol Fumarate 10.2 gm IH BID #1 hfa.aer.ad 05/24/20 Unknown Rx [Symbicort 160-4.5 Mcg Inhaler] levoFLOXacin [Levaquin TAB] 750 mg PO DAILY #4 tablet 05/24/20 Unknown Rx predniSONE [Deltasone] 60 mg PO QDAY #4 tablet 05/24/20 Unknown Rx ED Physical Exam - General Limitations: No Limitations General appearance: alert, in no apparent distress - Head Head exam: Present: atraumatic, normocephalic, normal inspection - Eye Eye exam: Present: normal appearance, PERRL, EOMI Pupils: Present: normal accommodation - ENT ENT exam: Present: normal exam, normal orophraynx, mucous membranes moist, TM's normal bilaterally, normal external ear exam - Neck Neck exam: Present: normal inspection, full ROM. Absent: tenderness - Respiratory Respiratory exam: Present: normal lung sounds bilaterally. Absent: respiratory distress, wheezes, rales, rhonchi, chest wall tenderness, accessory muscle use, decreased breath sounds - Cardiovascular Cardiovascular Exam: Present: regular rate, normal rhythm, normal heart sounds. Absent: systolic murmur, diastolic murmur, rubs, gallop - GI/Abdominal GI/Abdominal exam: Present: soft, normal bowel sounds. Absent: tenderness, guarding, rebound, hyperactive bowel sounds, hypoactive bowel sounds - Extremities Exam Extremities exam: Present: normal inspection, full ROM, normal capillary refill. Absent: tenderness, pedal edema, joint swelling, calf tenderness - Back Exam Back exam: Present: normal inspection, full ROM, tenderness (Palpable severe lumbosacral paraspinal musculoskeletal tenderness; no midline tenderness), muscle spasm, paraspinal tenderness. Absent: CVA tenderness (R), CVA tenderness (L), vertebral tenderness - Neurological Exam Neurological exam: Present: alert, oriented X3, CN II-XII intact, normal gait, reflexes normal - Psychiatric Psychiatric exam: Present: normal affect, normal mood - Skin Skin exam: Present: warm, dry, intact, normal color. Absent: rash ED Course Vital Signs 11/06/20 11/06/20 01:05 01:06 Temperature 98.6 F 98.6 F Pulse Rate 80 Respiratory 18 Rate Blood Pressure 185/106 O2 Sat by Pulse 94 Oximetry ED Medical Decision Making - Radiology Data Radiology results: report reviewed - Medical Decision Making This is a 65-year-old -Swiss female with a history of COPD, chronic osteoarthritis, chronic degenerative lumbar disc disease, [id number]-gybiknuim diabetes, hypertension who presents to the ED with complaint of acute exacerbation of her chronic low back pain that radiates to the right leg for the last 2 weeks, worse in the last 2 days. Patient states that she usually takes Percocet 10 mg - 325 mg tablets with Neurontin but that these medications have not helped control her pain. Patient states that the pain is sharp, constant and persistent and that she is unable to sleep because of worsening pain. In the ED, patient is alert and oriented x3 and is not in any distress. Patient however appears to be in pain. Patient was treated for pain in the ED and urinalysis showed no sign of acute urinary tract infection. On reevaluation, patient's pain is well controlled medications. Patient will discharge home and advised to follow-up with her primary care physician or pain clinic for further evaluation. Patient was advised to take her regular pain medication as previously advised. Patient was otherwise advised return to the ED immediately if symptoms get worse. - Differential Diagnosis Muscle spasm; muscle strain; chronic pain syndrome; sciatica Critical care attestation.: If time is entered above; I have spent that time in minutes in the direct care of this critically ill patient, excluding procedure time. ED Disposition Clinical Impression: Spasm of muscle of lower back Chronic low back pain with right-sided sciatica Qualifiers: Back pain laterality: right Qualified Code(s): M54.41 - Lumbago with sciatica, right side Disposition: 01 HOME / SELF CARE / HOMELESS Is pt being admited?: No Does the pt Need Aspirin: No Condition: Stable Instructions: Muscle Cramps and Spasms, [id number], Sciatica, Chronic Back Pain, [id number] Additional Instructions: Your symptoms are chronic, therefore take your regular medications at home as prescribed by your pain clinic. Follow-up with your primary care physician or pain management team for further evaluation in 3 to 5 days. Return to the ED immediately if symptoms get worse. Referrals: [facility] [Provider Group] - 7-10 days Time of Disposition: 03:45 Print Language: IRISH
== END 2020-11-06 06:34 | disposition home or self-care (01) ==
LOC: ED 22:45
DX: M62.830 Muscle spasm of back (principal); M54.41 Lumbago with sciatica, right side; Z88.5 Allergy status to narcotic agent; Z88.0 Allergy status to penicillin; I10 Essential (primary) hypertension; E11.8 Type 2 diabetes mellitus with unspecified complications
CPT/HCPCS: 81001; 96372; 99283; J1100; Q0162

== ENCOUNTER 2021-06-11 01:01 | Emergency (ER) | payer MEDICAID ==
[2021-06-11] MEDS ORDERED: dexAMETHasone 4 MG/ML VIAL IM ONE (04:36)
[2021-06-11] MEDS ORDERED: KETOROLAC 30 MG/1 ML INJ IM ONE (04:36)
[2021-06-11] MEDS ORDERED: CYCLOBENZAPRINE 10 MG TAB PO ONE (04:36)
--- NOTE | 2021-06-11 04:41 | Emergency Department Report ---
ED Back Pain/Injury HPI - General Chief Complaint: Pain General Stated Complaint: PAIN IN BUTT DOWN LEG BETWEEN THIGH & PELVIC Time Seen by Provider: 06/11/21 04:16 Source: patient Limitations: Physical Limitation - History of Present Illness Initial Comments: 65-year-old black female with a past medical history of chronic back pain presents to the emergency department for evaluation of lower back pain. She states that she takes medications routinely for back pain but today is worse than usual. She denies, abdominal pain, dysuria, fever, and vaginal discharge. She states that pain is worse with movement and radiates down her right leg and thigh. MD Complaint: back pain -: Gradual, days(s) (45) Similar Symptoms Previously: Yes Place: home Radiation: right leg Severity: severe Severity scale (0 -10): 10 Quality: burning, aching Consistency: constant Worsens With: movement Associated Symptoms: denies: confusion, weakness, chest pain, numbness, difficulty walking, cough, difficulty urinating, diaphoresis, incontinence, fever/chills, constipation, headaches, abdominal pain, loss of appetite, malaise, nausea/vomiting, rash, seizure, shortness of breath, syncope Treatments Prior to Arrival: prescription analgesics - Related Data Previous Rx's Medication Instructions Recorded Last Taken Type ALPRAZolam [Xanax TAB] 2 mg PO TID PRN #24 tablet 02/10/21 Unknown Rx Albuterol Mdi (or & Nicu Only) 2 puff IH Q4HR PRN #1 inhalation 02/10/21 Unknown Rx [ProAir HFA Inhaler] Budesonide/Formoterol Fumarate 10.2 gm IH BID #1 hfa.aer.ad 02/10/21 Unknown Rx [Symbicort 160-4.5 Mcg Inhaler] Famotidine [Pepcid] 20 mg PO BID #60 tablet 02/10/21 Unknown Rx amLODIPine 10 mg PO DAILY #30 tablet 02/10/21 Unknown Rx guaiFENesin [Robitussin] 200 mg PO Q6H PRN #20 tablet 02/10/21 Unknown Rx hydrALAZINE [Apresoline TAB] 50 mg PO Q8HR #90 tablet 02/10/21 Unknown Rx levoFLOXacin [Levaquin TAB] 750 mg PO DAILY #5 tablet 02/10/21 Unknown Rx metFORMIN [Glucophage] 500 mg PO BIDDIAB #60 tablet 02/10/21 Unknown Rx predniSONE [Deltasone] 20 mg PO QDAY #5 tablet 02/10/21 Unknown Rx Cyclobenzaprine [Flexeril] 10 mg PO TID PRN #12 tab 06/11/21 Unknown Rx methylPREDNISolone [Medrol 4MG 4 mg PO DAILY #1 pack 06/11/21 Unknown Rx DOSEPAK (21 tabs)] Allergies Allergy/AdvReac Type Severity Reaction Status Date / Time codeine Allergy Swelling Verified 02/07/21 15:22 Penicillins Allergy Swelling Verified 02/07/21 15:22 ED Review of Systems ROS: Stated complaint: PAIN IN BUTT DOWN LEG BETWEEN THIGH & PELVIC Other details as noted in HPI Comment: All other systems reviewed and negative Constitutional: denies: chills, fever Respiratory: denies: shortness of breath, SOB with exertion, SOB at rest Cardiovascular: denies: chest pain, palpitations, dyspnea on exertion, orthopnea, edema, syncope, paroxysmal nocturnal dyspnea Gastrointestinal: denies: abdominal pain, nausea, vomiting Genitourinary: denies: urgency, dysuria, frequency, hematuria, discharge Musculoskeletal: back pain Skin: denies: rash, lesions Neurological: denies: headache, weakness ED Past Medical Hx - Past Medical History Hx Hypertension: Yes Hx Diabetes: Yes Hx Arthritis: Yes Hx Psychiatric Treatment: Yes (Bipolar) Hx Asthma: Yes Hx COPD: No Hx HIV: No Additional medical history: bronchitis, Substance abuser - Surgical History Additional Surgical History: right total knee replacement, hernia repair, shoulder surgery - Social History Smoking Status: Former Smoker (None x20 years) Substance Use Type: None (Denies illicit drug use) - Medications Home Medications: Home Medications Medication Instructions Recorded Confirmed Last Taken Type ALPRAZolam [Xanax TAB] 2 mg PO TID PRN #24 tablet 02/10/21 Unknown Rx Albuterol Mdi (or & Nicu Only) 2 puff IH Q4HR PRN #1 inhalation 02/10/21 Unknown Rx [ProAir HFA Inhaler] Budesonide/Formoterol Fumarate 10.2 gm IH BID #1 hfa.aer.ad 02/10/21 Unknown Rx [Symbicort 160-4.5 Mcg Inhaler] Famotidine [Pepcid] 20 mg PO BID #60 tablet 02/10/21 Unknown Rx amLODIPine 10 mg PO DAILY #30 tablet 02/10/21 Unknown Rx guaiFENesin [Robitussin] 200 mg PO Q6H PRN #20 tablet 02/10/21 Unknown Rx hydrALAZINE [Apresoline TAB] 50 mg PO Q8HR #90 tablet 02/10/21 Unknown Rx levoFLOXacin [Levaquin TAB] 750 mg PO DAILY #5 tablet 02/10/21 Unknown Rx metFORMIN [Glucophage] 500 mg PO BIDDIAB #60 tablet 02/10/21 Unknown Rx predniSONE [Deltasone] 20 mg PO QDAY #5 tablet 02/10/21 Unknown Rx Cyclobenzaprine [Flexeril] 10 mg PO TID PRN #12 tab 06/11/21 Unknown Rx methylPREDNISolone [Medrol 4MG 4 mg PO DAILY #1 pack 06/11/21 Unknown Rx DOSEPAK (21 tabs)] ED Physical Exam - General Limitations: Physical Limitation General appearance: alert, in no apparent distress - Eye Eye exam: Present: normal appearance. Absent: conjunctival injection - Neck Neck exam: Present: normal inspection, full ROM. Absent: tenderness, lymphadenopathy - Respiratory Respiratory exam: Present: normal lung sounds bilaterally. Absent: respiratory distress, wheezes, rales, rhonchi, stridor, chest wall tenderness - Cardiovascular Cardiovascular Exam: Present: regular rate, normal heart sounds - GI/Abdominal GI/Abdominal exam: Present: soft, normal bowel sounds. Absent: distended, tenderness, guarding, rebound, rigid - Extremities Exam Extremities exam: Present: normal inspection - Expanded Lower Extremity Exam Right Hip exam: Present: full ROM, tenderness. Absent: swelling Neuro vascular tendon exam: Present: no vascular compromise. Absent: pulse d eficit, abnormal cap refill, motor deficit, sensory deficit, extremity cold to touch, pallor Gait: Positive: observed and limited by pain - Back Exam Back exam: Present: normal inspection, tenderness (Right lower). Absent: CVA tenderness (R), CVA tenderness (L), vertebral tenderness - Expanded Back Exam Expanded Back exam: Absent: saddle anesthesia Back exam: Positive Straight Leg Raise: Right - Neurological Exam Neurological exam: Present: alert, oriented X3, normal gait - Psychiatric Psychiatric exam: Present: normal affect, normal mood - Skin Skin exam: Present: warm, dry, intact, normal color ED Course Vital Signs 06/11/21 06/11/21 03:00 04:57 Temperature 97.7 F Pulse Rate 87 84 Respiratory 18 12 Rate Blood Pressure 144/88 142/87 [Right] O2 Sat by Pulse 98 100 Oximetry ED Medical Decision Making - Medical Decision Making 65-year-old black female with a past medical history of chronic back pain presents to the emergency department for evaluation of lower back pain. She states that she takes medications routinely for back pain but today is worse than usual. She denies, abdominal pain, dysuria, fever, and vaginal discharge. She states that pain is worse with movement and radiates down her right leg and thigh. Assessment and symptoms consistent with right lower back pain with sciatica down the right leg. Patient will be treated with steroids, anti-inflammatories, and muscle relaxants while in the emergency department then discharged home with Medrol Dosepak and Flexeril to use as directed. She is advised to take medication as prescribed and follow-up with primary care provider if no improvement or worsening symptoms. She is advised to return to the emergency department for any concerning symptoms. She verbalized understanding of and agreement with plan of care. Critical care attestation.: If time is entered above; I have spent that time in minutes in the direct care of this critically ill patient, excluding procedure time. ED Disposition Clinical Impression: Back pain Qualifiers: Back pain location: low back pain Chronicity: chronic Back pain laterality: right Sciatica presence: with sciatica Sciatica laterality: sciatica of right side Qualified Code(s): M54.41 - Lumbago with sciatica, right side; G89.29 - Other chronic pain Disposition: 01 HOME / SELF CARE / HOMELESS Is pt being admited?: No Does the pt Need Aspirin: No Condition: Stable Instructions: Sciatica, [id number], Chronic Back Pain, [id number] Additional Instructions: Take medications as prescribed. Follow-up with pain management. Return to the emergency department as needed. Prescriptions: Cyclobenzaprine [Flexeril] 10 mg PO TID PRN #12 tab PRN Reason: Muscle Spasm methylPREDNISolone [Medrol 4MG DOSEPAK (21 tabs)] 4 mg PO DAILY #1 pack Referrals: MIKY ANDERSON MD [Staff Physician] - 3-5 Days Time of Disposition: 04:41
[2021-06-11 04:59] VITALS: BP 142/87
== END 2021-06-11 05:20 | disposition home or self-care (01) ==
LOC: ED 01:01
DX: M54.41 Lumbago with sciatica, right side (principal); I10 Essential (primary) hypertension; E11.9 Type 2 diabetes mellitus without complications; M19.90 Unspecified osteoarthritis, unspecified site; F31.9 Bipolar disorder, unspecified; J45.909 Unspecified asthma, uncomplicated; Z87.891 Personal history of nicotine dependence; Z88.0 Allergy status to penicillin; Z88.5 Allergy status to narcotic agent; Z79.899 Other long term (current) drug therapy
CPT/HCPCS: 96372; 99282; J1100; J1885

== ENCOUNTER 2021-07-04 14:08 | Emergency (ER) | payer MEDICAID ==
[2021-07-04] MEDS ORDERED: dexAMETHasone 4 MG/ML VIAL IM ONE (17:47)
[2021-07-04] MEDS ORDERED: IBUPROFEN 800 MG TAB PO ONE (17:48)
[2021-07-04] MEDS ORDERED: CYCLOBENZAPRINE 10 MG TAB PO ONE (17:48)
--- NOTE | 2021-07-04 17:49 | Emergency Department Report ---
ED Back Pain/Injury HPI - General Chief Complaint: Pain General Stated Complaint: SCIATICA NERVE PAIN Time Seen by Provider: 07/04/21 17:47 Source: patient Limitations: No Limitations - Related Data Previous Rx's Medication Instructions Recorded Last Taken Type ALPRAZolam [Xanax TAB] 2 mg PO TID PRN #24 tablet 02/10/21 Unknown Rx Albuterol Mdi (or & Nicu Only) 2 puff IH Q4HR PRN #1 inhalation 02/10/21 Unknown Rx [ProAir HFA Inhaler] Budesonide/Formoterol Fumarate 10.2 gm IH BID #1 hfa.aer.ad 02/10/21 Unknown Rx [Symbicort 160-4.5 Mcg Inhaler] Famotidine [Pepcid] 20 mg PO BID #60 tablet 02/10/21 Unknown Rx amLODIPine 10 mg PO DAILY #30 tablet 02/10/21 Unknown Rx guaiFENesin [Robitussin] 200 mg PO Q6H PRN #20 tablet 02/10/21 Unknown Rx hydrALAZINE [Apresoline TAB] 50 mg PO Q8HR #90 tablet 02/10/21 Unknown Rx levoFLOXacin [Levaquin TAB] 750 mg PO DAILY #5 tablet 02/10/21 Unknown Rx metFORMIN [Glucophage] 500 mg PO BIDDIAB #60 tablet 02/10/21 Unknown Rx predniSONE [Deltasone] 20 mg PO QDAY #5 tablet 02/10/21 Unknown Rx Cyclobenzaprine [Flexeril] 10 mg PO TID PRN #12 tab 06/11/21 Unknown Rx methylPREDNISolone [Medrol 4MG 4 mg PO DAILY #1 pack 06/11/21 Unknown Rx DOSEPAK (21 tabs)] methylPREDNISolone [Medrol 4MG 4 mg PO FS #1 tab.ds.pk 07/04/21 Unknown Rx DOSEPAK (21 tabs)] Allergies Allergy/AdvReac Type Severity Reaction Status Date / Time codeine Allergy Swelling Verified 02/07/21 15:22 Penicillins Allergy Swelling Verified 02/07/21 15:22 ED Review of Systems ROS: Stated complaint: SCIATICA NERVE PAIN Other details as noted in HPI Comment: All other systems reviewed and negative ED Past Medical Hx - Past Medical History Previous Medical History?: Yes Hx Hypertension: Yes Hx Diabetes: Yes Hx Arthritis: Yes Hx Psychiatric Treatment: Yes (Bipolar) Hx Asthma: Yes Hx COPD: No Hx HIV: No Additional medical history: bronchitis, Substance abuser - Surgical History Past Surgical History?: Yes Additional Surgical History: right total knee replacement, hernia repair, shoulder surgery - Family History Family history: no significant - Social History Smoking Status: Former Smoker (None x20 years) Substance Use Type: None (Denies illicit drug use) - Medications Home Medications: Home Medications Medication Instructions Recorded Confirmed Last Taken Type ALPRAZolam [Xanax TAB] 2 mg PO TID PRN #24 tablet 02/10/21 Unknown Rx Albuterol Mdi (or & Nicu Only) 2 puff IH Q4HR PRN #1 inhalation 02/10/21 Unknown Rx [ProAir HFA Inhaler] Budesonide/Formoterol Fumarate 10.2 gm IH BID #1 hfa.aer.ad 02/10/21 Unknown Rx [Symbicort 160-4.5 Mcg Inhaler] Famotidine [Pepcid] 20 mg PO BID #60 tablet 02/10/21 Unknown Rx amLODIPine 10 mg PO DAILY #30 tablet 02/10/21 Unknown Rx guaiFENesin [Robitussin] 200 mg PO Q6H PRN #20 tablet 02/10/21 Unknown Rx hydrALAZINE [Apresoline TAB] 50 mg PO Q8HR #90 tablet 02/10/21 Unknown Rx levoFLOXacin [Levaquin TAB] 750 mg PO DAILY #5 tablet 02/10/21 Unknown Rx metFORMIN [Glucophage] 500 mg PO BIDDIAB #60 tablet 02/10/21 Unknown Rx predniSONE [Deltasone] 20 mg PO QDAY #5 tablet 02/10/21 Unknown Rx Cyclobenzaprine [Flexeril] 10 mg PO TID PRN #12 tab 06/11/21 Unknown Rx methylPREDNISolone [Medrol 4MG 4 mg PO DAILY #1 pack 06/11/21 Unknown Rx DOSEPAK (21 tabs)] methylPREDNISolone [Medrol 4MG 4 mg PO FS #1 tab.ds.pk 07/04/21 Unknown Rx DOSEPAK (21 tabs)] ED Physical Exam - General Limitations: No Limitations General appearance: alert, in no apparent distress - Head Head exam: Present: atraumatic, normocephalic - Eye Eye exam: Present: normal appearance - ENT ENT exam: Present: mucous membranes moist - Neck Neck exam: Present: normal inspection - Respiratory Respiratory exam: Present: normal lung sounds bilaterally. Absent: respiratory distress - Cardiovascular Cardiovascular Exam: Present: regular rate, normal rhythm. Absent: systolic murmur, diastolic murmur, rubs, gallop - GI/Abdominal GI/Abdominal exam: Present: soft, normal bowel sounds - Extremities Exam Extremities exam: Present: normal inspection - Back Exam Back exam: Present: normal inspection - Neurological Exam Neurological exam: Present: alert, oriented X3 - Psychiatric Psychiatric exam: Present: normal affect, normal mood - Skin Skin exam: Present: warm, dry, intact, normal color. Absent: rash ED Course Vital Signs 07/04/21 15:06 Temperature 98.6 F Pulse Rate 104 H Respiratory 20 Rate Blood Pressure 164/110 O2 Sat by Pulse 96 Oximetry Critical care attestation.: If time is entered above; I have spent that time in minutes in the direct care of this critically ill patient, excluding procedure time. ED Disposition Clinical Impression: Sciatica, Chronic pain, Hypertension, Obese Disposition: HOME / SELF CARE / HOMELESS Is pt being admited?: No Does the pt Need Aspirin: No Condition: Stable Instructions: Sciatica Rehab-SportsMed, Hypertension (ED) Additional Instructions: Continue your home medications including Percocet warm baths and compresses will help Follow-up with orthopedics I have given you referral below Prednisone as ordered today Prescriptions: methylPREDNISolone [Medrol 4MG DOSEPAK (21 tabs)] 4 mg PO FS #1 tab.ds.pk Referrals: ARRON WESLEY MD [Staff Physician] - 3-5 Days TRINIDAD SALAZAR MD [Staff Physician] - 3-5 Days Time of Disposition: 17:50
[2021-07-04 18:33] VITALS: BP 157/98
== END 2021-07-04 18:32 | disposition home or self-care (01) ==
LOC: ED 14:08
DX: M54.30 Sciatica, unspecified side (principal); E66.9 Obesity, unspecified; I10 Essential (primary) hypertension; E11.9 Type 2 diabetes mellitus without complications; M19.90 Unspecified osteoarthritis, unspecified site; F31.9 Bipolar disorder, unspecified; J45.909 Unspecified asthma, uncomplicated; Z98.890 Other specified postprocedural states; Z87.891 Personal history of nicotine dependence; Z88.0 Allergy status to penicillin; Z88.5 Allergy status to narcotic agent
CPT/HCPCS: 96372; 99282; J1100

== ENCOUNTER 2021-08-25 19:33 | Emergency (ER) | payer MEDICAID ==
[2021-08-26] MEDS ORDERED: HYDROcodone/ACETAMINOPHEN 5-325 MG TAB PO STA (00:32)
--- NOTE | 2021-08-26 01:23 | XRay Report ---
LEFT KNEE 4 VIEW(S) INDICATION / CLINICAL INFORMATION: fall pain COMPARISON: None available. FINDINGS: No fracture, dislocation, or significant soft tissue abnormality is demonstrated. No radiopaque forei gn bodies are identified. Moderately advanced tricompartmental osteoarthrosis is demonstrated. Small suprapatellar joint effusion present. Intra-articular free bodies are suggested. IMPRESSION: 1.No evidence of acute osseous pathology. Signer Name: Gerson Ward II, MD Signed: 08/26/2021 1:19 AM Workstation Name: [id number]
--- NOTE | 2021-08-26 03:16 | Emergency Department Report ---
ED Lower Extremity HPI - General Chief Complaint: Extremity Injury, Lower Stated Complaint: FALL/LEFT KNEE PAIN Time Seen by Provider: 08/26/21 00:31 Source: patient Mode of arrival: Ambulatory Limitations: No Limitations - History of Present Illness MD Complaint: knee injury -: Gradual, days(s) (4) Injury: Knee: Left Type of Injury: unknown Place: home Severity: mild, moderate Improves With: nothing Worsens With: weight bearing, movement, palpation Context: fall Associated Symptoms: swelling, tingling, able to partially bear weight Treatments Prior to Arrival: cold therapy, other (using a rolling walker) - Related Data Previous Rx's Medication Instructions Recorded Last Taken Type ALPRAZolam [Xanax TAB] 2 mg PO TID PRN #24 tablet 02/10/21 Unknown Rx Albuterol Mdi (or & Nicu Only) 2 puff IH Q4HR PRN #1 inhalation 02/10/21 Unknown Rx [ProAir HFA Inhaler] Budesonide/Formoterol Fumarate 10.2 gm IH BID #1 hfa.aer.ad 02/10/21 Unknown Rx [Symbicort 160-4.5 Mcg Inhaler] Famotidine [Pepcid] 20 mg PO BID #60 tablet 02/10/21 Unknown Rx amLODIPine 10 mg PO DAILY #30 tablet 02/10/21 Unknown Rx guaiFENesin [Robitussin] 200 mg PO Q6H PRN #20 tablet 02/10/21 Unknown Rx hydrALAZINE [Apresoline TAB] 50 mg PO Q8HR #90 tablet 02/10/21 Unknown Rx levoFLOXacin [Levaquin TAB] 750 mg PO DAILY #5 tablet 02/10/21 Unknown Rx metFORMIN [Glucophage] 500 mg PO BIDDIAB #60 tablet 02/10/21 Unknown Rx predniSONE [Deltasone] 20 mg PO QDAY #5 tablet 02/10/21 Unknown Rx Cyclobenzaprine [Flexeril] 10 mg PO TID PRN #12 tab 06/11/21 Unknown Rx methylPREDNISolone [Medrol 4MG 4 mg PO DAILY #1 pack 06/11/21 Unknown Rx DOSEPAK (21 tabs)] methylPREDNISolone [Medrol 4MG 4 mg PO FS #1 tab.ds.pk 07/04/21 Unknown Rx DOSEPAK (21 tabs)] Ketorolac [Toradol] 10 mg PO Q6H PRN #20 08/26/21 Unknown Rx Allergies Allergy/AdvReac Type Severity Reaction Status Date / Time codeine Allergy Swelling Verified 02/07/21 15:22 Penicillins Allergy Swelling Verified 02/07/21 15:22 ED Review of Systems ROS: Stated complaint: FALL/LEFT KNEE PAIN Other details as noted in HPI Comment: All other systems reviewed and negative ED Past Medical Hx - Past Medical History Previous Medical History?: Yes Hx Hypertension: Yes Hx Diabetes: Yes Hx Arthritis: Yes Hx Psychiatric Treatment: Yes (Bipolar) Hx Asthma: Yes Hx COPD: No Hx HIV: No Additional medical history: bronchitis, Substance abuser - Surgical History Past Surgical History?: Yes Additional Surgical History: right total knee replacement, hernia repair, shoulder surgery - Social History Smoking Status: Never Smoker Substance Use Type: None - Medications Home Medications: Home Medications Medication Instructions Recorded Confirmed Last Taken Type ALPRAZolam [Xanax TAB] 2 mg PO TID PRN #24 tablet 02/10/21 Unknown Rx Albuterol Mdi (or & Nicu Only) 2 puff IH Q4HR PRN #1 inhalation 02/10/21 Unknown Rx [ProAir HFA Inhaler] Budesonide/Formoterol Fumarate 10.2 gm IH BID #1 hfa.aer.ad 02/10/21 Unknown Rx [Symbicort 160-4.5 Mcg Inhaler] Famotidine [Pepcid] 20 mg PO BID #60 tablet 02/10/21 Unknown Rx amLODIPine 10 mg PO DAILY #30 tablet 02/10/21 Unknown Rx guaiFENesin [Robitussin] 200 mg PO Q6H PRN #20 tablet 02/10/21 Unknown Rx hydrALAZINE [Apresoline TAB] 50 mg PO Q8HR #90 tablet 02/10/21 Unknown Rx levoFLOXacin [Levaquin TAB] 750 mg PO DAILY #5 tablet 02/10/21 Unknown Rx metFORMIN [Glucophage] 500 mg PO BIDDIAB #60 tablet 02/10/21 Unknown Rx predniSONE [Deltasone] 20 mg PO QDAY #5 tablet 02/10/21 Unknown Rx Cyclobenzaprine [Flexeril] 10 mg PO TID PRN #12 tab 06/11/21 Unknown Rx methylPREDNISolone [Medrol 4MG 4 mg PO DAILY #1 pack 06/11/21 Unknown Rx DOSEPAK (21 tabs)] methylPREDNISolone [Medrol 4MG 4 mg PO FS #1 tab.ds.pk 07/04/21 Unknown Rx DOSEPAK (21 tabs)] Ketorolac [Toradol] 10 mg PO Q6H PRN #20 08/26/21 Unknown Rx ED Physical Exam - General Limitations: No Limitations General appearance: alert, in no apparent distress - Head Head exam: Present: atraumatic, normocephalic - Eye Eye exam: Present: normal appearance, PERRL, EOMI Pupils: Present: normal accommodation - ENT ENT exam: Present: mucous membranes moist - Neck Neck exam: Present: normal inspection - Respiratory Respiratory exam: Present: normal lung sounds bilaterally. Absent: respiratory distress - Cardiovascular Cardiovascular Exam: Present: regular rate, normal rhythm. Absent: systolic murmur, diastolic murmur, rubs, gallop - GI/Abdominal GI/Abdominal exam: Present: soft, normal bowel sounds - Extremities Exam Extremities exam: Present: normal inspection, tenderness (Tenderness to the knee with palpation. Normal varus and valgus. Drawer test is negative. Mild swelling is noted.) - Back Exam Back exam: Present: normal inspection. Absent: CVA tenderness (R), CVA tenderness (L) - Neurological Exam Neurological exam: Present: alert, oriented X3, CN II-XII intact - Psychiatric Psychiatric exam: Present: normal affect, normal mood. Absent: flat affect, manic - Skin Skin exam: Present: warm, dry, intact, normal color. Absent: rash, diaphoretic, erythema ED Course Vital Signs 08/25/21 08/26/21 19:49 00:44 Temperature 99.7 F H 98.0 F Pulse Rate 105 H 90 Respiratory 18 22 Rate Blood Pressure 152/84 Blood Pressure 120/72 [Right] O2 Sat by Pulse 95 95 Oximetry ED Lower Extremity MDM - Radiology Data Radiology results: report reviewed [facility] [address] [place] [address] XRay Report Signed Patient: BRYANT FISHMAN MR#: [id number] : 1955 Acct:[id number] Age/Sex: 65 / F ADM Date: 08/25/21 Loc: ED Attending Dr: Ordering Physician: ELIZABETH MCWILLIAMS Date of Service: 07/17/22 Procedure(s): XR knee 3V LT Accession Number(s): [id number] cc: ELIZABETH MCWILLIAMS Fluoro Time In Minutes: LEFT KNEE 4 VIEW(S) INDICATION / CLINICAL INFORMATION: fall pain COMPARISON: None available. FINDINGS: No fracture, dislocation, or significant soft tissue abnormality is demonstrated. No radiopaque foreign bodies are identified. Moderately advanced tricompartmental osteoarthrosis is demonstrated. Small suprapatellar joint effusion present. Intra-articular free bodies are suggested. IMPRESSION: 1.No evidence of acute osseous pathology. Signer Name: Higinio Ward II, MD Signed: 08/26/2021 1:19 AM Workstation Name: [id number] Transcribed By: ISABELLA Dictated By: HIGINIO WARD II, MD Electronically Authenticated By: HIGINIO WARD II, MD Signed Date/Time: 08/26/21118 DD/ 7 TD/TT: Critical care attestation.: If time is entered above; I have spent that time in minutes in the direct care of this critically ill patient, excluding procedure time. ED Disposition Clinical Impression: Knee pain, Tricompartment osteoarthritis of left knee Disposition: 01 HOME / SELF CARE / HOMELESS Is pt being admited?: No Does the pt Need Aspirin: No Condition: Stable Instructions: Acute Knee Pain, Adult, Musculoskeletal Pain, Arthritis, Joint Pain, [id number], How to Use a Knee Brace Prescriptions: Ketorolac [Toradol] 10 mg PO Q6H PRN #20 PRN Reason: Pain Referrals: [facility] [Provider Group] - 3-5 Days
[2021-08-26 03:54] VITALS: BP 136/70
== END 2021-08-26 03:53 | disposition home or self-care (01) ==
LOC: ED 19:33
DX: M25.562 Pain in left knee (principal); M17.12 Unilateral primary osteoarthritis, left knee; I10 Essential (primary) hypertension; E11.9 Type 2 diabetes mellitus without complications; Z88.0 Allergy status to penicillin; J45.909 Unspecified asthma, uncomplicated; Z88.5 Allergy status to narcotic agent
CPT/HCPCS: 99282; 99283